=== PATIENT | male | born 1955 | race Caucasian/White ===

== ENCOUNTER 2018-04-28 18:16 | Emergency (ER) | payer OTHER, SELFPAY ==
[2018-04-28 18:17] VITALS: BP 149/83; BP 149/93; PULSE 66; PULSE 67; RESP 17; RESP 18; TEMP 36.5; O2SAT 98; O2SAT 99; BMI 30.1
--- NOTE | 2018-04-28 20:41 | ED.DCSUM_ITS ---
- ER Visit Summary Date of Service: 04/28/18 Chief Complaint: Left calf swelling History of Present Illness: The patient is a [address] Mora. He reports he has swelling in his left ankle and calf that began yesterday. He denies any pain. He just reports that it feels tight. He denies any injury. No fall, MVA, or change in activity. No personal family history of DVT. No recent travel. No chest pain or shortness of breath. No paresthesias distally. Physical Examination: Vitals: Stable. Afebrile. General: Well-nourished and well-developed. Head: Normocephalic atraumatic. Neck: Supple, no lymphadenopathy. No JVD. Nontender. Cardiovascular: Regular rate and rhythm. No murmurs. Respiratory: No respiratory distress. Clear to auscultation bilaterally. Abdominal: Soft, nontender, nondistended, normal bowel sounds. No guarding, rebound, or peritoneal signs. Back: Nontender. Extremities: Nontender, 1+ edema of his left calf. There is no overlying erythema or warmth to suggest cellulitis. He has a 2+ dorsalis pedis pulse. No pain over the medial or lateral malleoli. No pain over the proximal fibular base the fifth metatarsal. He is neurovascular intact distally. Skin: Normal color, no rash. Neurologic: Alert and oriented ?3. Cranial nerves II through XII are intact. Normal strength and sensation. Psych: Normal affect. Test Results: Left lower extremity Doppler was negative. Emergency Department Course and Treatment: Patient refused pain medications and is resting comfortably. Treatment Plan: Patient will be discharged instructions to have symptomatic care. Elevate his leg. Follow-up his primary care physician 1 week if not improving. Return to the emergency department for any worsening symptoms. Disposition: To home in improved and stable condition. Impression: 1. Left calf swelling, uncertain cause. This note was generated with [employer] dictation software. It may contain incorrect words, spelling, and punctuation that were not noted in review of the chart prior to signing ED Disposition - Plan for ED Patient: Disposition: Home or Assisted Living Chief Complaint: Lower Extremity Injury Instructions: ED Leg Swelling Unilateral Referrals: David Mora MD [Primary Care Provider] - 1 Week if not improving
[2018-04-28 20:47] VITALS: BP 137/81; PULSE 83; RESP 20; O2SAT 98
--- NOTE | 2018-04-28 20:48 | ED.RN ---
THIS NURSE REVIEWED D/C INSTRUCTIONS WITH PT. PT VERBALIZED UNDERSTANDING OF INSTRUCTIONS. PT DENIES FURTHER NEEDS OR QUESTIONS AT THIS TIME. PT AMBULATES FROM ROOM ON OWN WITHOUT ASSISTANCE FROM STAFF
== END 2018-04-28 20:48 | disposition home or self-care (01) ==
LOC: ED 19:32
PROVIDERS: Emergency Provider Emergency Medicine; Family Provider Family Medicine; PCP Family Medicine
DX: M79.89 Other specified soft tissue disorders (principal); I10 Essential (primary) hypertension; E78.00 Pure hypercholesterolemia, unspecified; E03.9 Hypothyroidism, unspecified; Z79.899 Other long term (current) drug therapy
CPT/HCPCS: 93971; 99282

== ENCOUNTER → 2025-06-20 | Outpatient (CLI) | payer OTHER, SELFPAY ==
--- NOTE | 2025-06-20 12:30 | MRI_ITS ---
EXAM: PELVIS W/WO CONTRAST 06/20/2025 CLINICAL HISTORY: PROSTATE CANCER SUSPECTED. TECHNIQUE: Procedure Code: [id number] Modality: MR Procedure: PELVIS W/WO CONTRAST Multiplanar and multisequence images were obtained intravenous gadolinium contrast. CONTRAST: Clariscan VOLUME: 20 mL COMPARISON: None available FINDINGS: Image quality:Diagnostic PSA:None available Prostate size: 3.2 x 4 x 3.2cms Prostate volume: 21.45mL Prostate Peripheral zone: 9 mm lesion of restricted diffusion in the mid left posterolateral peripheral zone with positive enhancement. PI-RADS: PI-RADS 4: high (clinically significant cancer is likely to be present) Transitional zone: Benign prostatic hyperplasia. No suspicious nodule. T2 weighted imaging score:Encapsulated nodules consistent with benign prostatic hyperplasia. PI-RADS: PI-RADS 2: low (clinically significant cancer is unlikely to be present) Extra prostatic extension: Capsule is intact. Seminal vesicles: Normal. Neurovascular involvement: None. Lymphadenopathy: No lymphadenopathy. Bladder: Normal. Osseous structures: Normal. Gastrointestinal: Normal. Soft tissues: Normal MRI/Pelvis W/WO Contrast IMPRESSION: Subtle 9 mm density in the mid left posterior lateral peripheral zone. PI-RADS: PI-RADS 4: high (clinically significant cancer is likely to be present ) Reading Location: [id number]
== END | disposition home or self-care (01) ==
LOC: OPMRI 12:25
PROVIDERS: PCP Family Medicine; Referring Provider Physician Assistant Medical; Visit Provider Physician Assistant Medical
DX: Z03.89 Encounter for observation for other suspected diseases and conditions ruled out (principal)
CPT/HCPCS: 72197; A9575; A4216

== ENCOUNTER → 2025-07-19 | Outpatient (CLI) | payer OTHER, SELFPAY ==
--- OUTSIDE RECORDS SUMMARY | 2025-07-19 07:22 | XMS RPT_ITS | CCD ---
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 Name Role Phone Abby LANIER, Arlen Ngo Primary Care Provider Arlen Floyd MD Primary Care Provider Juan SALEEM.KORY, Priya Unavailable ARLEN FLOYD Primary Care Unavailable JANET SAGE Attending Unavailable ARLEN FLOYD Primary Care Unavailable JANET SAGE Referring Unavailable FRANCHESCA ALLISON Attending Unavailable ARLEN FLOYD Referring Unavailable ARLEN FLOYD Primary Care Unavailable JANET SAGE Referring Unavailable ARLEN FLOYD Primary Care Unavailable JANET SAGE Referring Unavailable ARLEN FLOYD Primary Care Unavailable David Floyd Primary Care Unavailable Janet Sage Referring Unavailable Janet Sage Attending Unavailable Medications Current Medications Medication Drug Class(es) Dates Sig (Normalized) Sig (Original) amoxicillin 875 mg / clavulanate 125 mg oral tablet (1 source) Penicillin-class Antibacterial Start: 11-28-2023 End: 12-05-2023 take 1 tablet by mouth twice daily amoxicillin-clavula ene potassium (AUGMENTIN) 875-125 mg per tablet Take 1 tablet by mouth two times a day for 7 days. 14 tablet 0 11/28/2023 12/05/2023 Active Comment on above: Take 1 tablet by verna th two times a day for 7 days. aspirin 81 mg delayed release oral tablet (4 sources) Platelet Aggregation Inhibitor, Nonsteroidal Anti-inflammatory Drug take 1 tablet by mouth once daily aspirin, enteric coated (ASPIRIN, ENTERIC COATED) 81 mg EC tablet Take 81 mg by mouth once daily. Active levothyroxine sodium 0.112 mg oral tablet (20 sources) l-Thyroxine Start: 04-20-2023 End: 05-12-2024 take 1 tablet by mouth once daily for thyroid dysfunction levothyroxine (SYNTHROID) 112 mcg tablet Indications: Acquired hypothyroidism Take 1 tablet by mouth once daily. Take on empty stomach. For thyroid. 90 tablet 3 05/12/2024 Active Start: 12-18-2021 End: 03-25-2022 take 1 tablet by mouth once daily for thyroid dysfunction levothyroxine (SYNTHROID) 112 mcg tablet Indications: Acquired hypothyroidism Take 1 tablet by mouth once daily. Take on empty stomach. For thyroid. 90 tablet 3 03/25/2022 Active Comment on above: TAKE 1 TABLET BY VERNA TH ONCE DAILY. TAKE ON EMPTY STOMACH. FOR THYROID. lisinopril 5 mg oral tablet (20 sources) Angiotensin Converting Enzyme Inhibitor Start: take 1.5 tablets by mouth once daily lisinopril (ZESTRIL) 5 mg tablet Take 1.5 tablets by mouth once daily. 135 tablet 3 05/12/2024 Active Start: 04-18-2024 End: 05-12-2024 lisinopril (ZESTRIL) 5 mg ta blet take 1 and 1/2 tablets by mouth once daily 135 tablet 04/18/2024 05/12/2024 Discontinued Start: 04-20-2023 End: 04-18-2024 take 1.5 tablets by mouth once daily lisinopril (ZESTRIL) 5 mg tablet Take 1.5 tablets by mouth once daily. 135 tablet 3 04/20/2023 04/18/2024 Discontinued Start: 03-19-2023 lisinopril (ZE STRIL) 5 mg tablet TAKE 1 AND 1/2 TABLETS BY MOUTH ONCE DAILY 135 tablet 0 03/19/2023 Active Start: 03-25-2022 End: 03-25-2023 take 1.5 tablets by mouth once daily lisinopril (ZESTRIL, PRINIVIL) 5 mg tablet Take 1.5 tablets by mouth once daily. 135 tablet 3 03/25/2022 03/19/2023 Discontinued Start: 12-17-2021 End: 03-25-2022 lisinopril (ZESTRIL, PRINIVI L) 5 mg tablet TAKE 1 AND 1/2 TABS EVERY DAY BY MOUTH 45 tablet 0 12/17/2021 03/25/2022 Discontinued Comment on above: TAKE 1 AND 1/2 TABS EVERY DAY BY MOUTH Take 1.5 tablets by mouth once daily. TAKE 1 AND 1/2 TABLE TS BY MOUTH ONCE DAILY magnesium sulfate 0.0277 meq/ml / potassium sulfate 0.0374 meq/ml / sodium sulfate 0.257 meq/ml oral solution (3 sources) Start: 025 sodium sulfate-potassium sulfate-magnesium sulfate (SUPREP BOWEL PREP KIT) 17.5-3.13-1.6 gram oral liquid Take 1 Bottle by mouth two times a day. 354 mL 09/21/2024 Active simvastatin 40 mg oral tablet (20 sources) HMG-CoA Reductase Inhibitor Start: 023 End: 024 take 1 tablet by mouth once daily at bedtime for hyperlipidemia simvastatin (ZOCOR) 40 mg tablet Indications: Mixed hyperlipidemia Take 1 tablet by mouth daily at bedtime. For cholesterol 90 tablet 3 05/12/2024 Active Start: 02-19-2023 take 1 tablet by verna th once daily at bedtime simvastatin (ZOCOR) 40 mg tablet Indications: Mixed hyperlipidemia TAKE 1 TABLET BY MOUTH DAILY AT BEDTIME. FOR CHOLESTEROLS. 90 tablet 0 02/19/2023 Active Start: 03-26-2021 End: 01-20-2022 take 1 tablet by mouth once daily at bedtime simvastatin (ZOCOR) 40 mg tablet Indications: Mixed hyperlipidemia Take 1 tablet by mouth daily at bedtime. For cholesterols. 90 tablet 3 01/20/2022 Active Comment on above: Take 1 tablet by verna th daily at bedtime. For cholesterols. Completed/Discontinued Medications Medication Drug Class(es) Dates Sig (Normalized) Sig (Original) calcium chloride 0.0014 meq/ml / potassium chloride 0.004 meq/ml / sodium chloride 0.103 meq/ml / sodium lactate 0.028 meq/ml injectable solution (1 source) Start: 10-11-2024 End: 10-11-2024 take 30 mL intravenously every hour 30 mL/hr, INTRAVENOUS, CONTINUOUS, Starting on Thu10/11/24 at 0930, Until Thu10/11/24 at 1020, Preprocedure diphenhydrAMINE (1 source) Histamine-1 Receptor Antagonist Start: 10-11-2024 End: 01-28-2025 12.5-50 mg, INTRAVENOUS, DIRECTED, Starting on Thu10/11/24 at 1000, Until Thu10/11/24 at 1359, DOSING DIRECTED BY PHYSICIAN FOR PROCEDURAL SEDATION ONLY, Intraprocedure 1 ml fentaNYL 0.05 mg/ml injection (1 source) Opioid Agonist Start: 10-11-2024 End: 10-11-2024 25-100 mcg, INTRAVENOUS, DIRECTED, Starting on Thu10/11/24 at 1000, Until Thu10/11/24 at 1359, DOSING DIRECTED BY PHYSICIAN FOR PROCEDURAL SEDATION ONLY, Intraprocedure 5 ml midazolam 1 mg/ml injection (1 source) Benzodiazepine Start: 10-11-2024 End: 10-11-2024 1-5 mg, INTRAVENOUS, DIRECTED, Starting on Thu10/11/24 at 1000, Until Thu10/11/24 at 1359, DOSING DIRECTED BY PHYSICIAN FOR PROCEDURAL SEDATION ONLY, Intraprocedure Problems Active Problems Problem Classification Problem Date Documented Da te Episodic/Chronic Disorders of lipid metabolism (20 sources) Mixed hyperlipidemia; Translations: [Mixed hyperlipidemia] Onset: 03-12-2009 Chronic Essential hypertension (20 sources) Essential hypertension; Translations: [Essential (primary) hypertension] Onset: 03-23-2009 Chronic Hyperplasia of prostate (20 sources) Benign prostatic hyperplasia; Translations: [Benign prostatic hyperplasia without lower urinary tract symptoms] Onset: 08-31-2009 08-31-2009 Chronic Immunizations and screening for infectious disease (10 sources) Patient encounter status; Translations: [Encounter for immunization] Episodic Lymphadenitis (1 source) Cervical lymphadenopathy; Translations: [Localized enlarged lymph nodes] 11-28-2023 Episodic Other and unspecified benign neoplasm (2 sources) Benign neoplasm of colon; Translations: [Benign neoplasm of colon, unspecified] 05-12-2024 Episodic Other screening for suspected conditions (not mental disorders or infectious disease) (8 sources) Raised prostate specific antigen; Translations: [Elevated prostate specific antigen [PSA]] Onset: 10-11-2024 05-19-2023 Episodic Other upper respiratory infections (2 sources) Acute pansinusitis; Translations: [Acute pansinusitis, unspecified] 11-28-2023 Episodic Residual codes; unclassified (19 sources) Family history of prostate cancer; Translations: [Family history of malignant neoplasm of prostate] Onset: 11-30-2012 11-30-2012 Episodic Residual codes; unclassified (1 source) Family history of malignant neoplasm of prostate; Translations: [Family history of malignant neoplasm of prostate] Onset: 05-30-2025 Episodic Thyroid disorders (20 sources) Acquired hypothyroidism; Translations: [Hypothyroidism, unspecified] Onset: 04-03-2011 09-04-2017 Chronic Past or Other Problems Problem Classification Problem Date Documented Da te Episodic/Chronic Other and unspecified benign neoplasm (1 source) Benign neoplasm of colon, unspecified; Translations: [Benign neoplasm of colon, unspecified part of colon] Onset: 10-11-2024 Episodic Results Test Name Value Interpretation Reference Range Facility [facility] 06-29-2025 KORYN Telephone (FPWADS) ILDA LARSEN ([id number]) 1955 M Date Time Provider Department 06/29/25 ARLEN FLOYD During your visit today, we recorded the following information about you: Jai Hurtado LPN 06/29/2025 11:51 AM Signed Received visit summary from [facility]. Placed in provider's inbox for review. Route to MA scanning Allergies As of Date: 06/29/2025 (No Known Allergies) Date Reviewed: 05/30/2025 Reviewed by: Uma Black LPN - Fully Assessed Reason for Visit: Received Outside Medical Records [[id number]] Cmt: [facility] Prescriptions as of 06/29/2025 - lisinopril (ZESTRIL) 5 mg tablet TAKE 1 AND 1/2 TABLETS BY MOUTH ONCE DAILY - levothyroxine (SYNTHROID) 112 mcg tablet TAKE 1 TABLET BY MOUTH ONCE DAILY. TAKE ON EMPTY STOMACH. FOR THYROID. - iv contrast (will be provided with radiology test) MRI Prostate Inject, intravenously, once for 1 dose. No IV access, insert saline lock prior to the beginning of sedation, infusion, injection of imaging exam. Discontinue saline lock post exam. If Pt. has a central line or IVAD, may access for administration according to line specific nursing protocol. Once exam is complete flush line and de-access according to line specific nursing protocol in the MR contrast administration guidelines link. - iv contrast (will be provided with radiology test) MRI Prostate Inject, intravenously, once for 1 dose. No IV access, insert saline lock prior to the beginning of sedation, infusion, injection of imaging exam. Discontinue saline lock post exam. If Pt. has a central line or IVAD, may access for administration according to line specific nursing protocol. Once exam is complete flush line and de-access according to line specific nursing protocol in the MR contrast administration guidelines link. - sodium sulfate-potassium sulfate-magnesium sulfate (SUPREP BOWEL PREP KIT) 17.5-3.13-1.6 gram oral liquid Take 1 Bottle by mouth two times a day. - aspirin, enteric coated (ASPIRIN, ENTERIC COATED) 81 mg EC tablet Take 81 mg by mouth once daily. - simvastatin (ZOCOR) 40 mg tablet Take 1 tablet by mouth daily at bedtime. For cholesterol Problem List As Of Date 06/29/2025 Noted Resolved Mixed Hyperlipidemia [E78.2] 03/12/2009 Essential hypertension [I10] 03/23/2009 BPH (Benign Prostatic Hyperplasia) [N40.0] 08/31/2009 Acquired hypothyroidism [E03.9] 04/03/2011 Family history of prostate cancer [Z80.42] 11/30/2012 Encounter Status:Closed by JAI HURTADO on 06/29/25 Normal [facility] Pelvis W/WO Contraston 06-20 Pelvis W/WO Contrast [facility] Imaging Services [address] [place] [id number] Pelvis W/WO Contrast MR#: [id number] Acct: [id number] Name: ILDA LARSEN Rep #: [id number] : 1955 M 69 From: Kulwant scott MD PCP: Dr. David Floyd MD Status: REG CLI Study: Pelvis W/WO Contrast Date of Exam: 06/20/25 Exam# [id number] Ordering Dr: Janet Sage PA EXAM: PELVIS W/WO CONTRAST 06/20/2025 CLINICAL HISTORY: PROSTATE CANCER SUSPECTED. TECHNIQUE: Procedure Code: [id number] Modality: MR Procedure: PELVIS W/WO CONTRAST Multiplanar and multisequence images were obtained intravenous gadolinium contrast. CONTRAST: Clariscan VOLUME: 20 mL COMPARISON: None available FINDINGS: Image quality:Diagnostic PSA:None available Prostate size: 3.2 x 4 x 3.2cms Prostate volume: 21.45mL Prostate Peripheral zone: 9 mm lesion of restricted diffusion in the mid left posterolateral peripheral zone with positive enhancement. PI-RADS: PI-RADS 4: high (clinically significant cancer is likely to be present) Transitional zone: Benign prostatic hyperplasia. No suspicious nodule. T2 weighted imaging score:Encapsulated nodules consistent with benign prostatic hyperplasia. PI-RADS: PI-RADS 2: low (clinically significant cancer is unlikely to be present) Extra prostatic extension: Capsule is intact. Seminal vesicles: Normal. Neurovascular involvement: None. Lymphadenopathy: No lymphadenopathy. Bladder: Normal. Osseous structures: Normal. Gastrointestinal: Normal. Soft tissues: Normal MRI/Pelvis W/WO Contrast IMPRESSION: Subtle 9 mm density in the mid left posterior lateral peripheral zone. PI-RADS: PI-RADS 4: high (clinically significant cancer is likely to be present) Reading Location: [id number] CC: JANET SAGE; Dr. David Floyd MD Senior Automation Engineer: Signed Normal [facility] 06-16-2025 [facility] Telephone (UROLWS) ILDA LARSEN ([id number]) 1955 M Date Time Provider Department 06/16/25 JANET SAGE During your visit today, we recorded the following information about you: Francy Montalvo LPN 06/16/2025 3:08 PM Signed Patient calling in requesting records to be faxed to [facility] (Dr. Aparicio) office. Faxed last office visit to [phone]. Francy Montalvo LPN Allergies As of Date: 06/16/2025 (No Known Allergies) Date Reviewed: 05/30/2025 Reviewed by: Uma Black LPN - Fully Assessed Reason for Visit: Patient Question [[id number]] Prescriptions as of 06/16/2025 - iv contrast (will be provided with radiology test) MRI Prostate Inject, intravenously, once for 1 dose. No IV access, insert saline lock prior to the beginning of sedation, infusion, injection of imaging exam. Discontinue saline lock post exam. If Pt. has a central line or IVAD, may access for administration according to line specific nursing protocol. Once exam is complete flush line and de-access according to line specific nursing protocol in the MR contrast administration guidelines link. - iv contrast (will be provided with radiology test) MRI Prostate Inject, intravenously, once for 1 dose. No IV access, insert saline lock prior to the beginning of sedation, infusion, injection of imaging exam. Discontinue saline lock post exam. If Pt. has a central line or IVAD, may access for administration according to line specific nursing protocol. Once exam is complete flush line and de-access according to line specific nursing protocol in the MR contrast administration guidelines link. - sodium sulfate-potassium sulfate-magnesium sulfate (SUPREP BOWEL PREP KIT) 17.5-3.13-1.6 gram oral liquid Take 1 Bottle by mouth two times a day. - aspirin, enteric coated (ASPIRIN, ENTERIC COATED) 81 mg EC tablet Take 81 mg by mouth once daily. - levothyroxine (SYNTHROID) 112 mcg tablet Take 1 tablet by mouth once daily. Take on empty stomach. For thyroid. - lisinopril (ZESTRIL) 5 mg tablet Take 1.5 tablets by mouth once daily. - simvastatin (ZOCOR) 40 mg tablet Take 1 tablet by mouth daily at bedtime. For cholesterol Problem List As Of Date 06/16/2025 Noted Resolved Mixed Hyperlipidemia [E78.2] 03/12/2009 Essential hypertension [I10] 03/23/2009 BPH (Benign Prostatic Hyperplasia) [N40.0] 08/31/2009 Acquired hypothyroidism [E03.9] 04/03/2011 Family history of prostate cancer [Z80.42] 11/30/2012 Encounter Status:Closed by FRANCY MONTALVO on 06/16/25 [facility] Jose 06-05-2025 [facility] Telephone (UROLWS) ILDA LARSEN ([id number]) 1955 M Date Time Provider Department 06/05/25 JANET SAGE During your visit today, we recorded the following information about you: Uma Black LPN 06/05/2025 9:07 AM Signed Orders faxed to [facility]. ROSE Pineda Jennifer, MA 06/14/2025 1:39 PM Signed Patient phones to report [facility] has cancelled his MRI for 06/14/2025 stating they need information from urology office. Patient reports calling his insurance and being told he does not require a prior auth and that [facility] is in network. Patient rescheduled MRI for 06/26/25 and is asking for the office to speak with [facility] to resolve issue. KATHYA Syed Kimberly, LPN 06/14/2025 3:28 PM Signed Called patient. Verified name and date of . Patient states he talked to a woman at [facility] and was told they needed to talk with urology office which they have not called here and he has no idea who the person was as he called main scheduling office and was transferred and his insurance company confirmed he did not need any sort of prior authorization. General appointment number for [facility] that patient called is . ROSE Pineda Kimberly, LPN 06/14/2025 3:52 PM Signed Called registration/scheduling at [facility] and spoke with Savana. Per Savana they have that patient requested appointment to be cancelled and rescheduled. Their pre certification department actually pushed out the appointment stating she believes that [facility] was to do the prior authorization but informed that [facility] would do it since they are the ones getting paid and that patients insurance does not require prior authorization. Savana is uncertain and needs to speak to their pre certification department. Placed on lengthy hold. Call transferred to Celine in pre certification with [facility]. Celine states that they do not do the prior authorizations due to not having EPIC system and she sent information to Elle to [facility] physicians that go to their facility. Celine reports it is not uncommon that insurances will tell patients that no prior authorization is needed but they submit and get notice one is needed. Number for Elle that Celine has is . ROSE Pineda Kimberly, LPN 06/15/2025 10:58 AM Addendum Erick Morales Elle You3 hours ago (7:09 AM) ROBBIE The number listed for me in the previous note is incorrect- my direct line is [phone]. A referral for [facility] needs entered in [employer], and then I can work the authorization. Referral placed. Uma Black LPN Allergies As of Date: 06/05/2025 (No Known Allergies) Date Reviewed: 05/30/2025 Reviewed by: Uma Black LPN - Fully Assessed Reason for Visit: Orders [[id number]] Cmt: MRI Prescriptions as of 06/15/2025 - iv contrast (will be provided with radiology test) MRI Prostate Inject, intravenously, once for 1 dose. No IV access, insert saline lock prior to the beginning of sedation, infusion, injection of imaging exam. Discontinue saline lock post exam. If Pt. has a central line or IVAD, may access for administration according to line specific nursing protocol. Once exam is complete flush line and de-access according to line specific nursing protocol in the MR contrast administration guidelines link. - iv contrast (will be provided with radiology test) MRI Prostate Inject, intravenously, once for 1 dose. No IV access, insert saline lock prior to the beginning of sedation, infusion, injection of imaging exam. Discontinue saline lock post exam. If Pt. has a central line or IVAD, may access for administration according to line specific nursing protocol. Once exam is complete flush line and de-access according to line specific nursing protocol in the MR contrast administration guidelines link. - sodium sulfate-potassium sulfate-magnesium sulfate (SUPREP BOWEL PREP KIT) 17.5-3.13-1.6 gram oral liquid Take 1 Bottle by mouth two times a day. - aspirin, enteric coated (ASPIRIN, ENTERIC COATED) 81 mg EC tablet Take 81 mg by mouth once daily. - levothyroxine (SYNTHROID) 112 mcg tablet Take 1 tablet by mouth once daily. Take on empty stomach. For thyroid. - lisinopril (ZESTRIL) 5 mg tablet Take 1.5 tablets by mouth once daily. - simvastatin (ZOCOR) 40 mg tablet Take 1 tablet by mouth daily at bedtime. For cholesterol Problem List As Of Date 06/05/2025 Noted Resolved Mixed Hyperlipidemia [E78.2] 03/12/2009 Essential hypertension [I10] 03/23/2009 BPH (Benign Prostatic Hyperplasia) [N40.0] 08/31/2009 Acquired hypothyroidism [E03.9] 04/03/2011 Family history of prostate cancer [Z80.42] 11/30/2012 Encounter Status:Closed by UMA BLACK on 06/05/25 [facility] Yana 05-30-2025 CNOV Office Visit (UROLWS ) ILDA LARSEN ([id number]) 1955 M Date Time Provider Department 05/30/25 2:30 PM JANET SAGE During your visit today, we recorded the following information about you: Uma Black LPN 05/30/2025 4:17 PM Signed Verified name and date of . CC Post Void Residual HPI: Ilda Larsen is a 69 year old male. The patient is here now for an appointment with Janet Sage, LARRY, [place], PA-COV. Procedure: Explained procedure to patient and verbalizes understanding. Performed a PVR. Patient urinated and instructed to empty bladder as much as possible just prior to having PVR done using bladder ultrasound scanner. Results of scan: 0 mL The patient tolerated the procedure well. Plan: Appointment with Janet. Janet Sage PA-C 05/30/2025 4:17 PM Signed [facility] EST PATIENT CLINIC NOTE (M) Some elements copied from his previous note, which have been updated where appropriate, and all reflect current medical decision making from date of this visit. Note was generated by [employer] and edited as appropriate SERVICE DATE: May 30, 2025 NAME: Ilda Larsen GENDER: male CHIEF COMPLAINT: The patient is a 69-year-old male, presenting for evaluation of rising prostate-specific antigen levels and isoform PSA blood testing. HISTORY OF PRESENT ILLNESS: The patient is a 69-year-old male, presenting for evaluation of rising prostate-specific antigen levels and isoform PSA blood testing. Elevated PSA Levels: - Gradual increase in PSA levels over the years, with a more significant rise noted in the past 6 months. - No urinary symptoms reported. - No history of prostate biopsy. - Family history of prostate cancer; brother underwent radical prostatectomy 14 years ago. - No current medications. > We discussed the common causes of urinary frequency and urgency, and restricting water intake In hopes to mitigate the need to urinate, we discussed how this behavior more often worsen the problem not improving it, > We discussed increasing daily water intake to 64-84 oz 7a -7p and try to reduce bladder irritants, caffeine, alcohol and acid foods and drink. > Bladder irritants handout available to patient. LABS: PSA (ng/mL) Date Value 05/24/2025 6.47 11/22/2024 5.95 04/19/2024 4.63 PSA Screening (ng/mL) Date Value 03/21/2020 2.46 02/10/2018 1.63 11/20/2016 1.49 Creatinine Date Value Ref Range Status 04/19/2024 1.05 0.73 - 1.22 mg/dL Final 03/31/2023 0.95 0.73 - 1.22 mg/dL Final 12/31/2021 1.03 0.73 - 1.22 mg/dL Final No results found for: TESTOST No results found for: "HCT" PSA (ng/mL) Date Value 05/24/2025 6.47 11/22/2024 5.95 04/19/2024 4.63 PSA Screening (ng/mL) Date Value 03/21/2020 2.46 02/10/2018 1.63 11/20/2016 1.49 MEDICATIONS: aspirin, enteric coated (ASPIRIN, ENTERIC COATED) 81 mg EC tablet Take 81 mg by mouth once daily. levothyroxine (SYNTHROID) 112 mcg tablet Take 1 tablet by mouth once daily. Take on empty stomach. For thyroid. lisinopril (ZESTRIL) 5 mg tablet Take 1.5 tablets by mouth once daily. simvastatin (ZOCOR) 40 mg tablet Take 1 tablet by mouth daily at bedtime. For cholesterol sodium sulfate-potassium sulfate-magnesium sulfate (SUPREP BOWEL PREP KIT) 17.5-3.13-1.6 gram oral liquid Take 1 Bottle by mouth two times a day. PAST MEDICAL HISTORY: PAST MEDICAL HISTORY Diagnosis Date Acquired hypothyroidism Benign neoplasm of colon BPH (benign prostatic hyperplasia) Coronary artery disease Deltoid bursitis Elevated prostate specific antigen (PSA) Essential hypertension HTN (hypertension) Hypercholesteremia Hypothyroidism 2011 Mixed hyperlipidemia Shingles Painful REVIEW OF SYSTEMS: Genitourinary: (-) urinary symptoms PHYSICAL EXAMINATION: General: Well-appearing, alert AND oriented, no acute distress Skin: Normal HEENT: Pupils equal, round. Oral cavity, oropharynx clear Neck: Supple, no mass Breast: Deferred Respiratory: Clear to auscultation, bilaterally Cardiovascular: Regular rate and rhythm, no murmurs, rubs, or gallops Abdomen: Soft, non-tender, non-distended, no masses palpable, no hepatosplenomegaly, normal bowel sounds Genitourinary: Deferred MSK: Back is non-tender Extremities: No clubbing, cyanosis, or edema PROBLEM LIST REVIEW: Yes LABS: Results for orders placed or performed in visit on 05/30/25 UA DIP, URINE (POC) Result Value Ref Range GLUCOSE UA (POCT) Negative Negative mg/dL BILIRUBIN UA (POCT) Negative Negative KETONE UA (POCT) Negative Negative mg/dL SPECIFIC GRAVITY UA (POCT) 1.020 1.005 - 1.030 HEMOGLOBIN/BLOOD UA (POCT) Trace-intact (A) Negative PH UA (POCT) 5.5 4.5 - 8.0 PROTEIN UA (POCT) Negative Negative mg/dL UROBILINOGEN UA (P (more content not included)... Normal [facility] ISOPSA ASSAY FOR UROLOGY USE ONLYon 05-30-2025 INTERPRETATION View results in Scan maureen Documents link when available. Normal [facility] Comment on above: Order Comment: Speci men Type: BLOOD SPECIMEN Ordering Facility: [facility] Address: [address] [place] [address] Performed By: #### I SOPSA #### [facility] CLIA [id number] [place] [id number] ISOPSA INDEX 21.2 Normal [facility] Comment on above: Order Comment: Speci men Type: BLOOD SPECIMEN Ordering Facility: [facility] Address: [address] [place] [address] Performed By: #### I SOPSA #### [facility] CLIA [id number] [place] [id number] TPSA RESULTS 7.7 Normal [facility] Comment on above: Order Comment: Speci men Type: BLOOD SPECIMEN Ordering Facility: [facility] Address: [address] [place] [address] Performed By: #### I SOPSA #### [facility] CLIA [id number] [id number] [place] [id number] UA DIP, URINE (POC)on 2024 BILIRUBIN UA (POCT) Negative Negative [facility] CLARITY UA (POCT) [facility] ([facility]) Yellow [facility] GLUCOSE UA (POCT) Negative Negative mg/dL [facility] Hemoglobin Ql (U) Trace-intact Abnormal Negative [facility] Interpretation and review of laboratory results Abnormal [facility] KETONE UA (POCT) Negative Negative mg/dL [facility] LEUKOCYTES UA (POCT) Negative Negative [facility] NITRITE UA (POCT) Negative Negative [facility] PH UA (POCT) 5.5 4.5 - 8.0 [facility] Protein Ql (U) Negative Negative mg/dL [facility] SPECIFIC GRAVITY UA (POCT) 1.020 1.005 - 1.030 [facility] UROBILINOGEN UA (POCT) 1.0 Normal E.U./dL [facility] Location:[facility], [address] [facility], [place], [place], [id number] [place] [address] POINT OF CARE [facility] PSA SerPl-mCncon 05-24-2025 Prostate specific Ag [Mass/Vol] 6.47 ng/mL High <2.60 [facility] Comment on above: Order Comment: Speci men Type: BLOOD SPECIMEN Ordering Facility: [facility] Address: [address] [place] [address] Result Comment: Tota l PSA test methodology used is the Electrochemiluminescence Immunoassay by [employer]. Total PSA values by differing methodologies cannot be interchanged. For an individual patient, the significance of a PSA level should be interpreted in a broad clinical context, including age, race, family history, digital rectal exam, prostate size, results of prior testing (prostate biopsy, free PSA, PCA3), and use of 5-alpha reductase inhibitors. Considering the high incidence of asymptomatic cancer in the general population that may not pose an ultimate risk to a patient, the decision to recommend urological evaluation or prostate biopsy should be individualized after consideration of all these factors. REFERENCE: Astrid Goldberg M.D., M.P.H., Leon Gutierrez M.D., Ph.D., Richard Tate M.D., Uma Argueta, M.P.H., Juanis Falk, Sc.D. Effect of Verification Bias on Screening for Prostate Cancer by Measurement of Prostatic Specific Antigen. N Engl J Med 2003,349:335-42. Performed By: #### 2 857-1 #### [facility] CLIA [id number] [address] [place] [address] [place] PSA SerPl-mCncon 11-22-2024 Prostate specific Ag [Mass/Vol] 5.95 ng/mL High <2.60 [facility] Comment on above: Order Comment: Speci men Type: BLOOD SPECIMEN Ordering Facility: [facility] Address: [address] [place] [id number] Result Comment: Tota l PSA test methodology used is the Electrochemiluminescence Immunoassay by [employer]. Total PSA values by differing methodologies cannot be interchanged. For an individual patient, the significance of a PSA level should be interpreted in a broad clinical context, including age, race, family history, digital rectal exam, prostate size, results of prior testing (prostate biopsy, free PSA, PCA3), and use of 5-alpha reductase inhibitors. Considering the high incidence of asymptomatic cancer in the general population that may not pose an ultimate risk to a patient, the decision to recommend urological evaluation or prostate biopsy should be individualized after consideration of all these factors. REFERENCE: Astrid Goldberg M.D., M.P.H., Leon Gutierrez M.D., Ph.D., Richard Tate M.D., Uma Argueta, M.P.H., Juanis Falk ScDillon. Effect of Verification Bias on Screening for Prostate Cancer by Measurement of Prostatic Specific Antigen. N Engl J Med 2003,349:335-42. Performed By: #### 2 857-1 #### [facility] CLIA [id number] [address] [place] [address] [place] [id number] 10-11-2024 [id number] HNO ID: [id number] Author: WANDA LAINEZ RN Service: ? Author Type: Registered Nurse Type: [id number] Filed: 10/11/2024 10:22 Note Text: The patient received a copy of Colonoscopy discharge instructions that contain information for how to contact the physician who performed the procedure and when to seek medical care. Normal [facility] Colonoscopyon 10-11-2024 Colonoscopy [facility] Gastrointestinal Endoscopy Patient Name: Ilda Larsen Procedure Date: 10/11/2024 9:39 AM Date of : 1955 Admit Type: Outpatient Age: 69 Gender: Male Note Status: Finalized Procedure: Colonoscopy - screening high risk Indications: High risk colon cancer surveillance: Personal history of adenomatous colonic polyps Providers: Franchesca Allison MD Patient Profile: Refer to note in patient chart for documentation of history and physical. Last Colonoscopy: 2019. Referring Physician: Arlen Floyd MD (Referring MD) Medicines: Midazolam 7 mg IV, Fentanyl 100 micrograms IV, Diphenhydramine 50 mg IV Complications: No immediate complications. Requesting Provider: Procedure: Pre-Anesthesia Assessment: - Prior to the procedure, a History and Physical was performed, and patient medications and allergies were reviewed. The patient is competent. The risks and benefits of the procedure and the sedation options and risks were discussed with the patient. All questions were answered and informed consent was obtained. Patient identification and proposed procedure were verified by the physician in the pre-procedure area. Mental Status Examination: alert and oriented. Airway Examination: normal oropharyngeal airway and neck mobility. Respiratory Examination: clear to auscultation. CV Examination: normal. Prophylactic Antibiotics: The patient does not require prophylactic antibiotics. Prior Anticoagulants: The patient has taken no anticoagulant or antiplatelet agents. ASA Grade Assessment: II - A patient with mild systemic disease. After reviewing the risks and benefits, the patient was deemed in satisfactory condition to undergo the procedure. The anesthesia plan was to use moderate sedation / analgesia (conscious sedation). Immediately prior to administration of medications, the patient was re-assessed for adequacy to receive sedatives. The heart rate, respiratory rate, oxygen saturations, blood pressure, adequacy of pulmonary ventilation, and response to care were monitored throughout the procedure. The physical status of the patient was re-assessed after the procedure. After I obtained informed consent, the scope was passed under direct vision. Throughout the procedure, the patient's blood pressure, pulse, and oxygen saturations were monitored continuously. The Colonoscope was introduced through the anus and advanced to the cecum, identified by the appendiceal orifice, ileocecal valve and palpation. The colonoscopy was performed without difficulty. The patient tolerated the procedure well. The quality of the bowel preparation was adequate to identify polyps greater than 5 mm in size. The appendiceal orifice and the rectum were photographed. Moderate Sedation: The administration of moderate sedation was initiated at 09:47. Moderate (conscious) sedation was personally administered by the endoscopist. The following parameters were monitored: oxygen saturation, heart rate, blood pressure, respiratory rate, EKG, adequacy of pulmonary ventilation, and response to care. Total physician intraservice time was 24 minutes. Findings: The perianal and digital rectal examinations were normal. Non-bleeding internal hemorrhoids were found. A few small-mouthed diverticula were found in the sigmoid colon. Impression: - Non-bleeding internal hemorrhoids. - No specimens collected. Recommendation: - Repeat colonoscopy in 5 years for surveillance for history of colon polyps. - Return to primary care physician PRN. - Patient has a contact number available for emergencies. The signs and symptoms of potential delayed complications were discussed with the patient. Return to normal activities tomorrow. Written discharge instructions were provided to the patient. - Continue present medications. - Resume previous diet. Procedure Code(s): --- Professional --- 05782, Colonoscopy, flexible; diagnostic, including collection of specimen(s) by brushing or washing, when performed (separate procedure) 12031, 59, Moderate sedation services provided by the same physician or other qualified health residential child care counselor performing the diagnostic or therapeutic service that the sedation supports, requiring the presence of an independent trained observer to assist in the monitoring of the patient's level of consciousness and physiological status; initial 15 minutes of intraservice time, patient age 5 years or older [address], Moderate sedation; each additional 15 minutes intraservice time Diagnosis Code(s): --- Professional --- K64.8, Other hemorrhoids Z86.0101, Personal history of adenomatous and serrated colon polyps Z12.11, Encounter for screening for malignant neoplasm of colon CPT copyright 2020 [employer]. All rights reserved. The codes documented in this report are preliminary and upon confectionery drops machine operator review m (more content not included)... Normal [facility] Colonoscopy Study observatio non 10-11-2024 [facility] Gastrointestinal Endoscopy Patient Name: Ilda Larsen Procedure Date: 10/11/2024 9:39 AM Date of : 1955 Admit Type: Outpatient Age: 69 Gender: Male Note Status: Finalized Procedure: Colonoscopy - screening high risk Indications: High risk colon cancer surveillance: Personal history of adenomatous colonic polyps Providers: Franchesca Allison MD Patient Profile: Refer to note in patient chart for documentation of history and physical. Last Colonoscopy: 2019. Referring Physician: Arlen Floyd MD (Referring MD) Medicines: Midazolam 7 mg IV, Fentanyl 100 micrograms IV, Diphenhydramine 50 mg IV Complications: No immediate complications. Requesting Provider: Procedure: Pre-Anesthesia Assessment: - Prior to the procedure, a History and Physical was performed, and patient medications and allergies were reviewed. The patient is competent. The risks and benefits of the procedure and the sedation options and risks were discussed with the patient. All questions were answered and informed consent was obtained. Patient identification and proposed procedure were verified by the physician in the pre-procedure area. Mental Status Examination: alert and oriented. Airway Examination: normal oropharyngeal airway and neck mobility. Respiratory Examination: clear to auscultation. CV Examination: normal. Prophylactic Antibiotics: The patient does not require prophylactic antibiotics. Prior Anticoagulants: The patient has taken no anticoagulant or antiplatelet agents. ASA Grade Assessment: II - A patient with mild systemic disease. After reviewing the risks and benefits, the patient was deemed in satisfactory condition to undergo the procedure. The anesthesia plan was to use moderate sedation / analgesia (conscious sedation). Immediately prior to administration of medications, the patient was re-assessed for adequacy to receive sedatives. The heart rate, respiratory rate, oxygen saturations, blood pressure, adequacy of pulmonary ventilation, and response to care were monitored throughout the procedure. The physical status of the patient was re-assessed after the procedure. After I obtained informed consent, the scope was passed under direct vision. Throughout the procedure, the patient's blood pressure, pulse, and oxygen saturations were monitored continuously. The Colonoscope was introduced through the anus and advanced to the cecum, identified by the appendiceal orifice, ileocecal valve and palpation. The colonoscopy was performed without difficulty. The patient tolerated the procedure well. The quality of the bowel preparation was adequate to identify polyps greater than 5 mm in size. The appendiceal orifice and the rectum were photographed. Moderate Sedation: The administration of moderate sedation was initiated at 09:47. Moderate (conscious) sedation was personally administered by the endoscopist. The following parameters were monitored: oxygen saturation, heart rate, blood pressure, respiratory rate, EKG, adequacy of pulmonary ventilation, and response to care. Total physician intraservice time was 24 minutes. Findings: The perianal and digital rectal examinations were normal. Non-bleeding internal hemorrhoids were found. A few small-mouthed diverticula were found in the sigmoid colon. Impression: - Non-bleeding internal hemorrhoids. - No specimens collected. Recommendation: - Repeat colonoscopy in 5 years for surveillance for history of colon polyps. - Return to primary care physician PRN. - Patient has a contact number available for emergencies. The signs and symptoms of potential delayed complicatio (more content not included)... PROVATION [facility] Radiology Study observation (narrative) [facility] HISTORY PHYSICALon HISTORY PHYSICAL HNO ID: [id number] Author: FRANCHESCA ALLISON MD Service: General Surgery Author Type: Physician Type: H&P Filed: 10/11/2024 09:38 Note Text: HISTORY AND PHYSICAL Ilda Larsen 1955 REFERRING PHYSICIAN: Arlen Floyd MD CHIEF COMPLAINT: No chief complaint on file. HPI: The patient is a 69 year old male here for colonoscopy.for screening for colon cancer Last had colonoscopy 2019 findings of polyp PAST MEDICAL HISTORY Diagnosis Date Acquired hypothyroidism Benign neoplasm of colon BPH (benign prostatic hyperplasia) Coronary artery disease Deltoid bursitis Elevated prostate specific antigen (PSA) Essential hypertension HTN (hypertension) Hypercholesteremia Hypothyroidism 2010 Mixed hyperlipidemia Shingles Painful PAST SURGICAL HISTORY Procedure Laterality Date COLONOSCOPY FLX DX W/COLLJ SPEC WHEN PFRMD 1998 Colonoscopy COLONOSCOPY FLX DX W/COLLJ SPEC WHEN PFRMD 11/09/2019 Colonoscopy COLSC FLX W/RMVL OF TUMOR POLYP LESION SNARE TQ 04/23/10 SIGMOIDOSCOPY FLX DX W/COLLJ SPEC BR/WA IF PFRMD 07/23/2010 Sigmoidoscopy, flexible VASECTOMY UNI/BI SPX W/POSTOP SEMEN EXAMS Current Outpatient Medications Medication Sig sodium sulfate-potassium sulfate-magnesium sulfate (SUPREP BOWEL PREP KIT) 17.5-3.13-1.6 gram oral liquid Take 1 Bottle by mouth two times a day. aspirin, enteric coated (ASPIRIN, ENTERIC COATED) 81 mg EC tablet Take 81 mg by mouth once daily. levothyroxine (SYNTHROID) 112 mcg tablet Take 1 tablet by mouth once daily. Take on empty stomach. For thyroid. lisinopril (ZESTRIL) 5 mg tablet Take 1.5 tablets by mouth once daily. simvastatin (ZOCOR) 40 mg tablet Take 1 tablet by mouth daily at bedtime. For cholesterol No current facility-administered medications for this encounter. ALLERGIES: Patient has no known allergies. PERSONAL HISTORY: Social History Tobacco Use Smoking status: Never Smokeless tobacco: Never Vaping Use Vaping status: Never Used Substance Use Topics Alcohol use: Not Currently Drug use: Never FAMILY HISTORY Problem Relation Age of Onset Lipids Brother Prostate Cancer Brother REVIEW OF SYSTEMS: Denies chest pain Denies shortness of breath Physical examination: Vital signs in chart, reviewed and noted by me General - WD/WN in no apparent distress, alert and oriented Head - Normocephalic. EOM intact with sclera clear. Mouth with mucus membranes moist. Neck - supple with no jugular venous distention noted. Trachea is midline. Lungs - normal breath sounds, normal respiratory motion, no adventitial sounds noted. Heart - normal heart sounds. Regular rate. Abdomen - soft and benign. Extremities - no pitting edema noted. Skin - Normal skin integrity. Neurological - non focal Psych - calm and appropriate Impression: screening for colon cancer, Discussion/Plan/Recommendati ons: I have discussed the above with the patient. I have offered colonoscopy , possible biopsies I have explained the procedure to the patient. I have counseled the patient as to the risks of the procedure, including but not limited to: infection, bleeding, injury to any intrabdominal organs such as liver/spleen, perforation of the GI tract, inability to complete the procedure, complications of anesthesia, etc. - the patient understands. The patient wishes to proceed. I have answered all questions to the patient?s satisfaction and the patient has no further questions. _ Franchesca Allison MD Normal [facility] UA DIP, URINE (POC)on 2023 BILIRUBIN UA (POCT) Negative Negative [facility] CLARITY UA (POCT) [facility] COLOR [facility]A (POCT) Dark [facility] GLUCOSE UA (POCT) Negative Negative mg/dL [facility] Hemoglobin Ql (U) Small Abnormal Negative [facility] Interpretation and review of laboratory results Abnormal [facility] KETONE UA (POCT) Negative Negative mg/dL [facility] LEUKOCYTES UA (POCT) Negative Negative [facility] NITRITE UA (POCT) Negative Negative [facility] PH UA (POCT) 5.5 4.5 - 8.0 [facility] Protein Ql (U) Negative Negative mg/dL [facility] SPECIFIC GRAVITY UA (POCT) >=1.030 1.005 - 1.030 [facility] UROBILINOGEN UA (POCT) 1.0 Normal E.U./dL [facility] Location:[facility], [address] , [place], [address] [facility] POINT OF CARE [facility] UA DIP, URINE (POC)on 2022 BILIRUBIN UA (POCT) Negative Negative [facility] CLARITY UA (POCT) Clear [facility] COLOR UA (POCT) Dark yellow [facility] GLUCOSE UA (POCT) Negative Negative mg/dL [facility] Hemoglobin Ql (U) Small Abnormal Negative [facility] KETONE UA (POCT) Negative Negative mg/dL [facility] LEUKOCYTES UA (POCT) Negative Negative [facility] NITRITE UA (POCT) Negative Negative [facility] PH UA (POCT) 5.5 4.5 - 8.0 [facility] Protein Ql (U) Negative Negative mg/dL [facility] SPECIFIC GRAVITY UA (POCT) >=1.030 1.005 - 1.030 [facility] UROBILINOGEN UA (POCT) 0.2 E.U./dL Normal E.U./dL [facility] Vital Signs Date Time Vital Sign Value Performing Clinician Faci lity 10-11-2024 10:46-0500 Diastolic blood pressure 73 mm[Hg] Franchesca Allison MD Work Phone: [facility] 10-11-2024 10:46-0500 Respiratory rate 16 /min Franchesca Allison MD Work Phone: [facility] 10-11-2024 10:46-0500 Systolic blood pressure 125 mm[Hg] Franchesca Allison MD Work Phone: [facility] 10-11-2024 10:10-0500 Heart rate 66 /min Franchesca Allison MD Work Phone: [facility] 10-11-2024 10:10-0500 SaO2% (BldA) [Mass fraction] 100 % Franchesca Allison MD Work Phone: [facility] 10-11-2024 09:11-0500 Body mass index (BMI) [Ratio] 30.53 kg/m2 Franchesca Allison MD Work Phone: [facility] 10-11-2024 09:11-0500 Body temperature 96.91 [degF] Franchesca Allison MD Work Phone: [facility] 10-11-2024 09:11-0500 Body weight 102.1 kg Franchesca Allison MD Work Phone: [facility] 05-24-2024 08:06-0400 Body height 182.9 cm Janet Sage PA-C Work Phone: [facility] 05-24-2024 08:06-0400 Body mass index (BMI) [Ratio] 30.52 kg/m2 Janet Sage PA-C Work Phone: [facility] 05-24-2024 08:06-0400 Body temperature 97.59 [degF] Janet Sage PA-C Work Phone: [facility] 05-24-2024 08:06-0400 Body weight 102.06 kg Janet Sage PA-C Work Phone: [facility] 05-24-2024 08:06-0400 Diastolic blood pressure 80 mm[Hg] Janet Sage PA-C Work Phone: [facility] 05-24-2024 08:06-0400 Heart rate 88 /min Janet Sage PA-C Work Phone: [facility] 05-24-2024 08:06-0400 Respiratory rate 14 /min Janet Sage PA-C Work Phone: [facility] 05-24-2024 08:06-0400 SaO2% (BldA) [Mass fraction] 96 % Janet Sage PA-C Work Phone: [facility] 05-24-2024 08:06-0400 Systolic blood pressure 134 mm[Hg] Janet Sage PA-C Work Phone: [facility] 05-12-2024 15:40-0400 Body height 182.9 cm Arlen Floyd MD Work Phone: [facility] 05-12-2024 15:40-0400 Body mass index (BMI) [Ratio] 30.2 kg/m2 Arlen Floyd MD Work Phone: [facility] 05-12-2024 15:40-0400 Body weight 101 kg Arlen Floyd MD Work Phone: [facility] 05-12-2024 15:40-0400 Diastolic blood pressure 89 mm[Hg] Arlen Floyd MD Work Phone: [facility] 05-12-2024 15:40-0400 Heart rate 71 /min Arlen Floyd MD Work Phone: [facility] 05-12-2024 15:40-0400 SaO2% (BldA) [Mass fraction] 94 % Arlen Floyd MD Work Phone: [facility] 05-12-2024 15:40-0400 Systolic blood pressure 136 mm[Hg] Arlen Flody MD Work Phone: [facility] 04-25-2024 09:20-0400 Body mass index (BMI) [Ratio] 29.99 kg/m2 Krislyn Aberegg PA Work Phone: [facility] 04-25-2024 09:20-0400 Body temperature 97.7 [degF] Krislyn Aberegg PA Work Phone: [facility] 04-25-2024 09:20-0400 Body weight 100.3 kg Krislyn Aberegg PA Work Phone: [facility] 04-25-2024 09:20-0400 Diastolic blood pressure 80 mm[Hg] Krislyn Aberegg PA Work Phone: [facility] 04-25-2024 09:20-0400 Heart rate 90 /min Krislyn Aberegg PA Work Phone: [facility] 04-25-2024 09:20-0400 Respiratory rate 20 /min Krislyn Aberegg PA Work Phone: [facility] 04-25-2024 09:20-0400 SaO2% (BldA) [Mass fraction] 98 % Krislyn Aberegg PA Work Phone: [facility] 04-25-2024 09:20-0400 Systolic blood pressure 120 mm[Hg] Nomi Rossieregg PA Work Phone: [facility] 11-28-2023 14:09-0400 Body temperature 98.8 [degF] Bernie Athy PA-C Work Phone: [facility] 11-28-2023 14:09-0400 Body weight 102.8 kg Bernie Athy PA-C Work Phone: [facility] 11-28-2023 14:09-0400 Diastolic blood pressure 80 mm[Hg] Bernie Athy PA-C Work Phone: [facility] 11-28-2023 14:09-0400 Heart rate 92 /min Bernie Athy PA-C Work Phone: [facility] 11-28-2023 14:09-0400 Respiratory rate 16 /min Bernie Athy PA-C Work Phone: [facility] 11-28-2023 14:09-0400 SaO2% (BldA) [Mass fraction] 95 % Bernie Athy PA-C Work Phone: [facility] 11-28-2023 14:09-0400 Systolic blood pressure 122 mm[Hg] Bernie Athy PA-C Work Phone: [facility] 05-19-2023 08:16-0400 Body height 182.9 cm Janet Sage PA-C Work Phone: [facility] 05-19-2023 08:16-0400 Body temperature 98.1 [degF] Janet Sage PA-C Work Phone: [facility] 05-19-2023 08:16-0400 Body weight 101.52 kg Janet Sage PA-C Work Phone: [facility] 05-19-2023 08:16-0400 Diastolic blood pressure 80 mm[Hg] Janet Sage PA-C Work Phone: [facility] 05-19-2023 08:16-0400 Heart rate 82 /min Janet Sage PA-C Work Phone: [facility] 05-19-2023 08:16-0400 Respiratory rate 12 /min Janet Carloney PA-C Work Phone: [facility] 05-19-2023 08:16-0400 SaO2% (BldA) [Mass fraction] 96 % Janet Carloney PA-C Work Phone: [facility] 05-19-2023 08:16-0400 Systolic blood pressure 120 mm[Hg] Janet Carloney PA-C Work Phone: [facility] 01-20-2022 11:16-0400 Diastolic blood pressure 80 mm[Hg] Priya Nanette MARKET CONSULTANT.PROCUREMENT SERVICES MANAGER Work Phone: [facility] 01-20-2022 11:16-0400 Systolic blood pressure 134 mm[Hg] Priya Nanette MARKET CONSULTANT.PROCUREMENT SERVICES MANAGER Work Phone: [facility] 01-20-2022 11:01-0400 Body height 182.9 cm Priya Nanette MARKET CONSULTANT.PROCUREMENT SERVICES MANAGER Work Phone: [facility] 01-20-2022 11:01-0400 Body weight 101.61 kg Priya Nanette MARKET CONSULTANT.PROCUREMENT SERVICES MANAGER Work Phone: [facility] 01-20-2022 11:01-0400 Heart rate 68 /min Priya Nanette MARKET CONSULTANT.PROCUREMENT SERVICES MANAGER Work Phone: [facility] Encounters Encounter Date Encounter Type Care Provider Facility Start: 06-20-2025 End: 06-20-2025 ambulatory David Floyd Facility:[facility] Start: 05-30-2025 End: 05-30-2025 Patient encounter procedure Janet Sage PA-C Work Phone: Urology Comment on above: Elevated PSA (Primar y Dx); Benign prostatic hyperplasia without lower urinary tract symptoms; Screening for genitourinary condition; Family history of malignant neoplasm of prostate Start: 05-30-2025 End: 05-30-2025 ambulatory ARLEN FLOYD Facility:[facility] Start: 05-24-2025 End: 05-24-2025 ambulatory JANET SAGE Facility:[facility] Start: 11-22-2024 End: 11-22-2024 ambulatory JANET SAGE Facility:[facility] Start: 10-11-2024 End: 10-11-2024 ambulatory FRANCHESCA ALLISON Facility:[facility] Start: 10-11-2024 End: 10-11-2024 Subsequent hospital visit by physician Franchesca Allison MD Work Phone: Ambulatory Surgery Comment on above: Benign neoplasm of c olon, unspecified part of colon [D12.6] Start: 09-21-2024 End: 09-21-2024 ambulatory Arlen Floyd MD Work Phone: [facility] Comment on above: Prep for Colonoscopy Start: 05-24-2024 End: 05-24-2024 Patient encounter procedure Janet Karen PA-C Work Phone: Urology Comment on above: Benign prostatic hyp erplasia without lower urinary tract symptoms (Primary Dx); Elevated PSA Start: 05-12-2024 End: 05-12-2024 Patient encounter procedure Arlen Floyd MD Work Phone: [facility] Comment on above: Well adult exam (Venessa julio c Dx); Screening for depression; Encounter for screening examination for other mental health and behavioral disorders; Acquired hypothyroidism; Mixed hyperlipidemia; Elevated PSA; Encounter for immunization; Screening for malignant neoplasm of the rectum; Benign neoplasm of colon, unspecified part of colon; Special screening for malignant neoplasms, colon Start: 05-12-2024 End: 05-12-2024 Patient encounter status Arlen Floyd MD Work Phone: [facility] Work Phone: Start: 05-06-2024 End: 05-06-2024 Refill Arlen Floyd MD Work Phone: [facility] Comment on above: Refill Request Start: 04-26-2024 Telephone encounter David marie APRN.CNP Work Phone: [facility] Comment on above: Results Start: 04-25-2024 End: 04-25-2024 Patient encounter procedure Nomi VERDUGO Work Phone: [facility] Comment on above: Suspected COVID-19 v irus infection (Primary Dx); URI, acute Start: 04-17-2024 Refill Arlen chang MD Work Phone: [facility] Comment on above: Refill Request Start: 12-04-2023 ambulatory Arlen chang MD Work Phone: [facility] Comment on above: Blood Flow Screening Start: 11-28-2023 End: 11-28-2023 Patient encounter procedure Bernie R Dat PA-C Work Phone: [facility] Comment on above: Acute pansinusitis, recurrence not specified (Primary Dx); Lymphadenopathy, cervical Start: 05-19-2023 End: 05-19-2023 Patient encounter procedure Janet Sage PA-C Work Phone: Urology Comment on above: Elevated PSA (Primar y Dx); Benign prostatic hyperplasia without lower urinary tract symptoms Start: 03-19-2023 Refill Priya Nanette A PRN.PROCUREMENT SERVICES MANAGER Work Phone: [facility] Comment on above: Refill Request Start: 05-01-2022 ambulatory Arlen chang MD Work Phone: [facility] Comment on above: Covid 19 Start: 03-25-2022 Telephone encounter Arlen Floyd MD Work Phone: [facility] Comment on above: Medication Request Start: 03-25-2022 End: 03-25-2022 Nursing evaluation of patient and report Nurse Patricia Harp Mc Work Phone: [facility] Comment on above: Encounter for immuni zation (Primary Dx) Start: 02-28-2022 Refill Priya Nanette A PRN.PROCUREMENT SERVICES MANAGER Work Phone: [facility] Comment on above: Refill Request Start: 01-20-2022 End: 01-20-2022 Patient encounter procedure Priya Nanette MARKET CONSULTANT.PROCUREMENT SERVICES MANAGER Work Phone: [facility] Comment on above: Well adult exam (Venessa julio c Dx); Mixed hyperlipidemia; Essential hypertension; Encounter for immunization Start: 01-20-2022 End: 01-20-2022 Patient encounter status Priya Fitzpatrick APRN.PROCUREMENT SERVICES MANAGER Work Phone: [facility] Procedures Date Procedure Procedure Detail Performing Clinician Start: 05-30-2025 Urnls dip stick/tabl et rgnt auto w/o microscopy Janet Sage PA-C Work Phone: Start: 10-11-2024 Colonoscopy flx dx w /collj spec when pfrmd Arlen Floyd MD Work Phone: Start: 10-11-2024 Colonoscopy Franchesca Allison MD Work Phone: Start: 05-24-2024 Urnls dip stick/tabl et rgnt auto w/o microscopy Janet Sage PA-C Work Phone: Start: 05-12-2024 RSV VACCINE, BIVALEN T (ABRYSVO) Arlen Floyd MD Work Phone: Start: 05-12-2024 Adult depression scr eening assessment Arlen Floyd MD Work Phone: Start: 04-19-2024 Lipid 1996 panel - S addie or Plasma Nomi Schneider PA Work Phone: Start: 05-19-2023 Urnls dip stick/tabl et rgnt auto w/o microscopy Janet Sage PA-C Work Phone: Start: 03-31-2023 Lipid 1996 panel - S addie or Plasma Bernie Daugherty PA-C Work Phone: Start: 01-20-2022 Adult depression scr eening assessment Priya Fitzpatrick APRN.PROCUREMENT SERVICES MANAGER Work Phone: Start: 11-09-2019 Colonoscopy Priya reynolds APRN.PROCUREMENT SERVICES MANAGER Work Phone: Plan of Treatment Date Care Activity Detail Author Start: 01-21-2032 Urine microalbumin profile [facility] Start: 05-24-2030 Prostate specific antigen measurement Prostate Cancer Screening Discussion [facility] Start: 10-11-2029 Screening for malign ant neoplasm of colon [facility] Start: 04-19-2029 Lipid panel Lipid Screening [facility] Start: 04-19-2029 Prostate specific antigen measurement Prostate Cancer Screening Discussion [facility] Start: 11-22-2028 Prostate specific antigen measurement Prostate Cancer Screening Discussion [facility] Start: 03-31-2028 Lipid panel Lipid Screening [facility] Start: 03-31-2028 LIPID SCREEN LIPID SCREEN [facility] Start: 03-31-2028 PROSTATE CANCER SCREENING DISCUSSION PROSTATE CANCER SCREENING DISCUSSION [facility] Start: 04-19-2027 Diabetes Screening Diabetes Screenin g [facility] Start: 12-31-2026 LIPID SCREEN LIPID SCREEN [facility] Start: 03-31-2026 DIABETES SCREEN DIABETES SCREEN [facility] Start: 03-31-2026 Diabetes Screening Diabetes Screenin g [facility] Start: 05-30-2025 End: 08-29-2025 ISOPSA ASSAY FOR UROLOGY USE ONLY [facility] Comment on above: Expected: 05/30/2025 (Approximate), Expires: 08/29/2025 Start: 05-24-2025 End: 08-23-2025 Prostate specific Ag [Mass/volume] in Serum or Plasma PROSTATE-SPECIFIC ANTIGEN DIAGNOSTIC Lab Routine Elevated PSA Expected: 05/24/2025 (Approximate), Expires: 08/23/2025 [facility] Comment on above: Expected: 05/24/2025 (Approximate), Expires: 08/23/2025 Start: 05-23-2025 End: 05-23-2025 Patient encounter procedure 05/23/2025 8:00 AM EDT Office Visit Urology [address] [place] [address] Janet Sage PA-C [address] [place] [address] 1 YR F/U ELEVATED PSA Urology Comment on above: 1 YR F/U ELEVATED PS A Start: 05-15-2025 Influenza vaccination Influenza Vacc ine (#1) [facility] Start: 05-12-2025 Annual PCP Team Slag Mixer ziggy Disease Visit Annual PCP Team Chronic Disease Visit [facility] Start: 05-12-2025 Anxiety Screening Anxiety Screening [facility] Start: 05-12-2025 Depression Screening Depression Scre ening [facility] Start: 04-25-2025 BP Controlled (<130/80) BP Controlle d (<130/80) [facility] Start: 03-21-2025 PROSTATE CANCER SCREENING DISCUSSION PROSTATE CANCER SCREENING DISCUSSION [facility] Start: 12-31-2024 DIABETES SCREEN DIABETES SCREEN [facility] Start: 11-21-2024 End: 02-20-2025 Prostate specific Ag [Mass/volume] in Serum or Plasma PROSTATE-SPECIFIC ANTIGEN DIAGNOSTIC Lab Routine Elevated PSA Expected: 11/21/2024 (Approximate), Expires: 02/20/2025 [facility] Comment on above: Expected: 11/21/2024 (Approximate), Expires: 02/20/2025 Start: 10-11-2024 End: 10-11-2024 Patient encounter procedure 10/11/2024 8:15 AM EST Appointment Ambulatory Surgery [address] [place], [place] [address] Franchesca Allison MD [address] [id number] Ambulatory Surgery Start: 09-14-2024 Advance Directive Discussion Advance Directive Discussion [facility] Start: 05-24-2024 End: 05-24-2024 Patient encounter procedure 05/24/2024 8:00 AM EDT Office Visit Urology [address] [place], [place] [id number] Janet Sage PA-C [address] [place] [address] Annual Urology Comment on above: Annual Start: 05-19-2024 End: 07-19-2024 Prostate specific Ag [Mass/volume] in Serum or Plasma PSA/PROSTSPECAG DIAG Lab Routine Elevated PSA Expected: 05/19/2024 (Approximate), Expires: 07/19/2024 [facility] Work Phone: Comment on above: Expected: 05/19/2024 (Approximate), Expires: 07/19/2024 Start: 05-15-2024 Covid-19 Vaccine (4 - 2023-24 season) Covid-19 Vaccine ( season) [facility] Start: 05-15-2024 Covid-19 Vaccine ( season) Covid-19 Vaccine ( season) [facility] Start: 05-15-2024 Influenza vaccination Influenza Vacc ine (#1) [facility] Start: 05-12-2024 End: 05-12-2024 Patient encounter procedure 05/12/2024 3:40 PM EDT Office Visit Family Practice [address] [place], [place] [address] Arlen Floyd MD [address] [place] [address] [place], [place] [id number] Just yearly wellness check. [facility] Comment on above: Just yearly wellness check. Start: 04-20-2024 ANNUAL PCP TEAM ENGLISH PROFESSOR ZIGGY DISEASE VISIT ANNUAL PCP TEAM CHRONIC DISEASE VISIT [facility] Start: 04-20-2024 BP CONTROLLED (<130/80) BP CONTROLLE D (<130/80) [facility] Start: 04-18-2024 End: 07-18-2024 Basic metabolic 2000 panel - Serum or Plasma BASIC METABOLIC PANEL Lab Routine Essential hypertension Expected: 04/18/2024, Expires: 07/18/2024 [facility] Comment on above: Expected: 04/18/2024 , Expires: 07/18/2024 Start: 04-18-2024 End: 07-18-2024 Lipid 1996 panel - Serum or Plasma LIPID PANEL BASIC Lab Routine Mixed hyperlipidemia Expected: 04/18/2024, Expires: 07/18/2024 [facility] Comment on above: Expected: 04/18/2024 , Expires: 07/18/2024 Start: 04-18-2024 End: 07-18-2024 Thyrotropin [Units/volume] in Serum or Plasma THYROID STIMULATING HORMONE Lab Routine Acquired hypothyroidism Expected: 04/18/2024, Expires: 07/18/2024 [facility] Work Phone: Comment on above: Expected: 04/18/2024 , Expires: 07/18/2024 Start: 11-17-2023 End: 01-17-2024 Prostate specific Ag [Mass/volume] in Serum or Plasma PSA/PROSTSPECAG DIAG Lab Routine Elevated PSA Expected: 11/17/2023 (Approximate), Expires: 01/17/2024 [facility] Work Phone: Comment on above: Expected: 11/17/2023 (Approximate), Expires: 01/17/2024 Start: 09-14-2023 Advance Directive Discussion Advance Directive Discussion [facility] Start: 09-14-2023 Depression Assessment Depression Ass essment [facility] Start: 05-15-2023 Covid-19 Vaccine () Covid-19 Vaccine () [facility] Start: 05-15-2023 Influenza vaccination [facility] Start: 01-20-2023 Adult depression screening assessment DEPRESSION SCREENING [facility] Start: 01-20-2023 ANNUAL PCP TEAM ENGLISH PROFESSOR ZIGGY DISEASE VISIT ANNUAL PCP TEAM CHRONIC DISEASE VISIT [facility] Start: 11-09-2022 Colonoscopy COLONOSCOPY [facility] Start: 11-09-2022 COLORECTAL CANCER SCREENING COLORECTAL CANCER SCREENING [facility] Start: 11-09-2022 Screening for malign ant neoplasm of colon [facility] Start: 2022 ADVANCE DIRECTIVE DISCUSSION ADVANCE DIRECTIVE DISCUSSION [facility] Start: 2022 PNEUMOCOCCAL: 65+ (1 - PCV) PNEUMOCOCCAL: 65+ (1 - PCV) [facility] Start: 09-14-2022 DEPRESSION ASSESSMENT DEPRESSION ASS ESSMENT [facility] Start: 05-15-2022 Influenza vaccination C [facility] Start: 03-17-2022 SHINGRIX VACCINE (2 of 2) SHINGRIX VACCINE (2 of 2) [facility] Start: 11-13-2021 COVID-19 VACCINE (4 - Booster for Moderna series) COVID-19 VACCINE (4 - Booster for Moderna series) [facility] Start: 09-10-2021 COVID-19 VACCINE (4 - Booster for Moderna series) COVID-19 VACCINE (4 - Booster for Moderna series) [facility] Start: 09-10-2021 COVID-19 VACCINE (4 - Moderna series) COVID-19 VACCINE (4 - Moderna series) [facility] Start: 2017 RSV Vaccine (1 - 1-d ose 60+ series) RSV Vaccine (1 - 1-dose 60+ series) [facility] Start: 07-23-2015 Screening for malign ant neoplasm of colon Sigmoidoscopy [facility] Start: 07-23-2015 SIGMOIDOSCOPY SIGMOIDOSCOPY [facility] Start: 2002 COLOGUARD (FIT-DNA) COLOGUARD (FIT-D NA) [facility] Start: [address] COLONOGRAPHY [facility] Start: 2002 FECAL OCCULT BLOOD FECAL OCCULT BLOO D [facility] Start: 2002 Screening for malign ant neoplasm of colon [facility] Start: 1975 Anxiety Screening Anxiety Screening [facility] Start: 1975 BP CONTROLLED (<130/80) BP CONTROLLE D (<130/80) [facility] Start: 1975 Depression Screening Depression Scre ening [facility] Basic metabolic 2000 panel - Serum or Plasma BASIC METABOLIC PANEL Lab Routine Essential hypertension 04/19/2024 7:52 AM EDT [facility] Lipid 1996 panel - Serum or Plasma LIPID PANEL BASIC Lab Routine Mixed hyperlipidemia 04/19/2024 7:52 AM EDT [facility] POST VOID RESIDUAL POST VOID RES IDUAL Procedures Routine Elevated PSA Ordered: 05/19/2023 [facility] Work Phone: Comment on above: Ordered: 05/19/2023 POST VOID RESIDUAL POST VOID RES IDUAL Procedures Routine Benign prostatic hyperplasia without lower urinary tract symptoms Elevated PSA Ordered: 05/24/2024 [facility] Work Phone: Comment on above: Ordered: 05/24/2024 POST VOID RESIDUAL POST VOID RES IDUAL Procedures Routine Benign prostatic hyperplasia without lower urinary tract symptoms Screening for genitourinary condition Elevated PSA Ordered: 05/30/2025 [facility] Work Phone: Comment on above: Ordered: 05/30/2025 SARS-CoV-2 (COVID-19 ) RNA [Presence] in Respiratory specimen by SUGAR with probe detection COVID NAAT, UPPER RESPIRATORY, ROUTINE Microbiology Routine Suspected COVID-19 virus infection URI, acute Ordered: 04/25/2024 [facility] Work Phone: Comment on above: Ordered: 04/25/2024 End: 05-12-2025 Screening colonoscopy COLONOSCOPY SCREENING Endoscopy Routine Benign neoplasm of colon, unspecified part of colon 1 Occurrences starting 05/12/2024 until 05/12/2025 [facility] Work Phone: Comment on above: 1 Occurrences starti ng 05/12/2024 until 05/12/2025 Thyrotropin [Units/volume] in Serum or Plasma THYROID STIMULATING HORMONE Lab Routine Acquired hypothyroidism 04/19/2024 7:52 AM EDT [facility] Immunizations Immunization Date Immunization Notes Care Provider Fa cility 05-12-2024 respiratory syncytia l virus (RSV) vaccine, bivalent (ABRYSVO) Arlen Floyd MD Work Phone: [facility] 04-20-2023 pneumococcal (PCV20) vaccine, 20 valent (PREVNAR 20) Janet Sage PA-C Work Phone: [facility] 03-25-2022 zoster vaccine recombinant Nurse Work Phone: [facility] 01-20-2022 tetanus and diphther ia toxoids, adsorbed, preservative free, for adult use (2 Lf of tetanus toxoid and 2 Lf of diphtheria toxoid) Priya Fitzpatrick APRN.PROCUREMENT SERVICES MANAGER Work Phone: [facility] 01-20-2022 zoster vaccine recombinant Priya Nanette MARKET CONSULTANT.PROCUREMENT SERVICES MANAGER Work Phone: [facility] 07-16-2021 COVID-19 vaccine, ag e 12+ yr ([employer] - PURPLE TOP) Priya Nanette MARKET CONSULTANT.PROCUREMENT SERVICES MANAGER Work Phone: [facility] 01-29-2010 tetanus toxoid, redu lizet diphtheria toxoid, and acellular pertussis vaccine, adsorbed Priya Nanette MARKET CONSULTANT.PROCUREMENT SERVICES MANAGER Work Phone: [facility] Work Phone: 10-10-1993 hepatitis B vaccine, pediatric or pediatric/adolescent dosage Priya Nanette MARKET CONSULTANT.PROCUREMENT SERVICES MANAGER Work Phone: [facility] 05-03-1993 hepatitis B vaccine, pediatric or pediatric/adolescent dosage Priya Nanette MARKET CONSULTANT.KORY Work Phone: [facility] 03-25-1993 hepatitis B vaccine, pediatric or pediatric/adolescent dosage Priya Fitzpatrick APRN.KORY Work Phone: [facility] Payers Date Payer Category Payer Self-pay 2019 Private Health Insurance [facility] [id number] 2019-Present [phone] [address] [place] [address] O [id number] 2019 Private Health Insurance [id number] 2019 Unknown [id number] Unknown [id number] Social History Date Type Detail Facility Start: 11-30-2012 Tobacco smoking status ILIS Never smoked tobacco [facility] Start: 01-20-2022 End: 05-12-2024 Alcohol intake Current non-drinker of alcohol (finding) [facility] Start: 01-20-2022 History SDOH Alcohol Frequency 1 [facility] Start: 01-20-2022 History SDOH Social Connections Phone 5 [facility] Start: 01-20-2022 History SDOH Social Connections Get Together 2 [facility] Start: 01-20-2022 History SDOH Social Connections Anglican 3 [facility] Start: 01-24-2020 End: 01-20-2022 History SDOH Physical Activity MPS 15 [facility] Start: 1955 Sex Assigned At Male [facility] Start: 01-10-2022 End: 01-20-2022 Exposure to SARS-CoV-2 (event) Not sure [facility] Start: 11-30-2012 Tobacco use and exposure Smokeless tobacco non-user [facility] Work Phone: Start: 04-14-2023 End: 05-06-2024 History of Social function [facility] Start: 04-14-2023 End: 05-06-2024 Social connection and isolation panel [facility] Do you belong to any clubs or organizations such as rastafarian groups, unions, fraternal or athletic groups, or school groups? No [facility] Are you now , , , , never or living with a partner? [facility] How often to you hav e a drink containing alcohol? Never [facility] Start: 08-15-2012 How many standard drinks containing alcohol do you have on a typical day? Patient does not drink [facility] Do you feel stress - tense, restless, nervous, or anxious, or unable to sleep at night because your mind is troubled all the time - these days [OSQ] Not at all [facility] (I/We) worried alex er (my/our) food would run out before (I/we) got money to buy more. Never true [facility] Start: 10-04-2020 Gender identity Identifies as male gender (finding) [facility] Start: 10-04-2020 Sexual orientation Heterosexual (finding) [facility] Start: 05-24-2024 End: 05-30-2025 Alcoholic beverage intake Ex-drinker (finding) [facility] ziggy Functional Status Date Assessment Result Facility 12-07-2014 Are you deaf, or do you have serious difficulty hearing No 12/07/2014 5:10 PM EDT Jonny Valentin LPN No [facility] 12-07-2014 Are you blind, or do you have serious difficulty seeing, even when wearing glasses No 12/07/2014 5:10 PM EDJonny Chavez LPN No [facility] 12-07-2014 Do you have serious difficulty walking or climbing stairs No 12/07/2014 5:10 PM EDT Jonny Valentin LPN No [facility] 12-07-2014 Do you have difficul ty dressing or bathing No 12/07/2014 5:10 PM EDJonny Chavez LPN No [facility] 12-07-2014 Because of a physica l, mental, or emotional condition, do you have difficulty doing errands alone such as visiting a physician's office or shopping No 12/07/2014 5:10 PM EDJonny Chavez LPN [facility] Mental Status Date Assessment Result Facility 12-07-2014 Because of a physica l, mental, or emotional condition, do you have serious difficulty concentrating, remembering, or making decisions No 12/07/2014 5:10 PM EDT Jonny Valentin LPN No [facility] Clinical Notes 01-20-2022 to 05-30-2025 Janet Sage PA-C - 05/30/2025 2:58 PM Uma De La Fuente LPN - 05/30/2025 2:41 PM [facility] Wanda Lainez RN - 10/11/2024 10:22 AM ESTPatient Instructions Note Date & Type Note Facility 05-30-2025 Note HNO ID: [id number] Author: JANET SAGE PA-C Service: ? Author Type: Physician Architecture Professor Type: Progress Notes Filed: 05/30/2025 16:17 Note Text: [facility] EST PATIENT CLINIC NOTE (M) Some elements copied from his previous note, which have been updated where appropriate, and all reflect current medical decision making from date of this visit. Note was generated by [employer] and edited as appropriate SERVICE DATE: May 30, 2025 NAME: Ilda Larsen GENDER: male CHIEF COMPLAINT: The patient is a 69-year-old male, presenting for evaluation of rising prostate-specific antigen levels and isoform PSA blood testing. HISTORY OF PRESENT ILLNESS: The patient is a 69-year-old male, presenting for evaluation of rising prostate-specific antigen levels and isoform PSA blood testing. Elevated PSA Levels: - Gradual increase in PSA levels over the years, with a more significant rise noted in the past 6 months. - No urinary symptoms reported. - No history of prostate biopsy. - Family history of prostate cancer; brother underwent radical prostatectomy 14 years ago. - No current medications. > We discussed the common causes of urinary frequency and urgency, and restricting water intake In hopes to mitigate the need to urinate, we discussed how this behavior more often worsen the problem not improving it, > We discussed increasing daily water intake to 64-84 oz 7a -7p and try to reduce bladder irritants, caffeine, alcohol and acid foods and drink. > Bladder irritants handout available to patient. LABS: PSA (ng/mL) Date Value 05/24/2025 6.47 11/22/2024 5.95 04/19/2024 4.63 PSA Screening (ng/mL) Date Value 03/21/2020 2.46 02/10/2018 1.63 11/20/2016 1.49 Creatinine Date Value Ref Range Status 04/19/2024 1.05 0.73 - 1.22 mg/dL Final 03/31/2023 0.95 0.73 - 1.22 mg/dL Final 12/31/2021 1.03 0.73 - 1.22 mg/dL Final No results found for: "TESTOST" No results found for: "HCT" PSA (ng/mL) Date Value 05/24/2025 6.47 11/22/2024 5.95 04/19/2024 4.63 PSA Screening (ng/mL) Date Value 03/21/2020 2.46 02/10/2018 1.63 11/20/2016 1.49 MEDICATIONS: aspirin, enteric coated (ASPIRIN, ENTERIC COATED) 81 mg EC tablet Take 81 mg by mouth once daily. levothyroxine (SYNTHROID) 112 mcg tablet Take 1 tablet by mouth once daily. Take on empty stomach. For thyroid. lisinopril (ZESTRIL) 5 mg tablet Take 1.5 tablets by mouth once daily. simvastatin (ZOCOR) 40 mg tablet Take 1 tablet by mouth daily at bedtime. For cholesterol sodium sulfate-potassium sulfate-magnesium sulfate (SUPREP BOWEL PREP KIT) 17.5-3.13-1.6 gram oral liquid Take 1 Bottle by mouth two times a day. PAST MEDICAL HISTORY: PAST MEDICAL HISTORY Diagnosis Date Acquired hypothyroidism Benign neoplasm of colon BPH (benign prostatic hyperplasia) Coronary artery disease Deltoid bursitis Elevated prostate specific antigen (PSA) Essential hypertension HTN (hypertension) Hypercholesteremia Hypothyroidism 2011 Mixed hyperlipidemia Shingles Painful REVIEW OF SYSTEMS: Genitourinary: (-) urinary symptoms PHYSICAL EXAMINATION: General: Well-appearing, alert AND oriented, no acute distress Skin: Normal HEENT: Pupils equal, round. Oral cavity, oropharynx clear Neck: Supple, no mass Breast: Deferred Respiratory: Clear to auscultation, bilaterally Cardiovascular: Regular rate and rhythm, no murmurs, rubs, or gallops Abdomen: Soft, non-tender, non-distended, no masses palpable, no hepatosplenomegaly, normal bowel sounds Genitourinary: Deferred MSK: Back is non-tender Extremities: No clubbing, cyanosis, or edema PROBLEM LIST REVIEW: Yes LABS: Results for orders placed or performed in visit on 05/30/25 UA DIP, URINE (POC) Result Value Ref Range GLUCOSE UA (POCT) Negative Negative mg/dL BILIRUBIN UA (POCT) Negative Negative KETONE UA (POCT) Negative Negative mg/dL SPECIFIC GRAVITY UA (POCT) 1.020 1.005 - 1.030 HEMOGLOBIN/BLOOD UA (POCT) Trace-intact (A) Negative PH UA (POCT) 5.5 4.5 - 8.0 PROTEIN UA (POCT) Negative Negative mg/dL UROBILINOGEN UA (POCT) 1.0 Normal E.U./dL NITRITE UA (POCT) Negative Negative LEUKOCYTES UA (POCT) Negative Negative COLOR UA (POCT) Yellow CLARITY UA (POCT) Clear PROCEDURES: PVR - 0 ml ASSESSMENT/PLAN: 1. Elevated PSA (R97.20) - PSA levels have shown a gradual increase over time, with the most significant change occurring over the past 6 months. Ordered isoPSA blood test to assess for high-grade prostate cancer risk. Patient instructed to complete the blood test today; no fasting required. If isoPSA results indicate greater than 6% matching isoproteins, will proceed with MRI to identify potential lesions before considering a biopsy. Discussed the rationale for MRI prior to biopsy to avoid unnecessary procedures and potential complicat (more content not included)... [facility] 05-30-2025 History of Present illness Narrative Images from the original note were not included. [facility] EST PATIENT CLINIC NOTE (M) Some elements copied from his previous note, which have been updated where appropriate, and all reflect current medical decision making from date of this visit. Note was generated by [employer] and edited as appropriate SERVICE DATE: May 30, 2025 NAME: Ilda Larsen GENDER: male CHIEF COMPLAINT: The patient is a 69-year-old male, presenting for evaluation of rising prostate-specific antigen levels and isoform PSA blood testing. HISTORY OF PRESENT ILLNESS: The patient is a 69-year-old male, presenting for evaluation of rising prostate-specific antigen levels and isoform PSA blood testing. Elevated PSA Levels: - Gradual increase in PSA levels over the years, with a more significant rise noted in the past 6 months. - No urinary symptoms reported. - No history of prostate biopsy. - Family history of prostate cancer; brother underwent radical prostatectomy 14 years ago. - No current medications. > We discussed the common causes of urinary frequency and urgency, and restricting water intake In hopes to mitigate the need to urinate, we discussed how this behavior more often worsen the problem not improving it, > We discussed increasing daily water intake to 64-84 oz 7a -7p and try to reduce bladder irritants, caffeine, alcohol and acid foods and drink. > Bladder irritants handout available to patient. LABS: PSA (ng/mL) Date Value 05/24/2025 6.47 11/22/2024 5.95 04/19/2024 4.63 PSA Screening (ng/mL) Date Value 03/21/2020 2.46 02/10/2018 1.63 11/20/2016 1.49 Creatinine Date Value Ref Range Status 04/19/2024 1.05 0.73 - 1.22 mg/dL Final 03/31/2023 0.95 0.73 - 1.22 mg/dL Final 12/31/2021 1.03 0.73 - 1.22 mg/dL Final No results found for: "TESTOST" No results found for: "HCT" PSA (ng/mL) Date Value 05/24/2025 6.47 11/22/2024 5.95 04/19/2024 4.63 PSA Screening (ng/mL) Date Value 03/21/2020 2.46 02/10/2018 1.63 11/20/2016 1.49 MEDICATIONS: aspirin, enteric coated (ASPIRIN, ENTERIC COATED) 81 mg EC tablet Take 81 mg by mouth once daily. levothyroxine (SYNTHROID) 112 mcg tablet Take 1 tablet by mouth once daily. Take on empty stomach. For thyroid. lisinopril (ZESTRIL) 5 mg tablet Take 1.5 tablets by mouth once daily. simvastatin (ZOCOR) 40 mg tablet Take 1 tablet by mouth daily at bedtime. For cholesterol sodium sulfate-potassium sulfate-magnesium sulfate (SUPREP BOWEL PREP KIT) 17.5-3.13-1.6 gram oral liquid Take 1 Bottle by mouth two times a day. PAST MEDICAL HISTORY: PAST MEDICAL HISTORY Diagnosis Date Acquired hypothyroidism Benign neoplasm of colon BPH (benign prostatic hyperplasia) Coronary artery disease Deltoid bursitis Elevated prostate specific antigen (PSA) Essential hypertension HTN (hypertension) Hypercholesteremia Hypothyroidism 2011 Mixed hyperlipidemia Shingles Painful REVIEW OF SYSTEMS: Genitourinary: (-) urinary symptoms PHYSICAL EXAMINATION: General: Well-appearing, alert & oriented, no acute distress Skin: Normal HEENT: Pupils equal, round. Oral cavity, oropharynx clear Neck: Supple, no mass Breast: Deferred Respiratory: Clear to auscultation, bilaterally Cardiovascular: Regular rate and rhythm, no murmurs, rubs, or gallops Abdomen: Soft, non-tender, non-distended, no masses palpable, no hepatosplenomegaly, normal bowel sounds Genitourinary: Deferred MSK: Back is non-tender Extremities: No clubbing, cyanosis, or edema PROBLEM LIST REVIEW: Yes LABS: Results for orders placed or performed in visit on 05/30/25 UA DIP, URINE (POC) Result Value Ref Range GLUCOSE UA (POCT) Negative Negative mg/dL BILIRUBIN UA (POCT) Negative Negative KETONE UA (POCT) Negative Negative mg/dL SPECIFIC GRAVITY UA (POCT) 1.020 1.005 - 1.030 HEMOGLOBIN/BLOOD UA (POCT) Trace-intact (A) Negative PH UA (POCT) 5.5 4.5 - 8.0 PROTEIN UA (POCT) Negative Negative mg/dL UROBILINOGEN UA (POCT) 1.0 Normal E.U./dL NITRITE UA (POCT) Negative Negative LEUKOCYTES UA (POCT) Negative Negative COLOR UA (POCT) Yellow CLARITY UA (POCT) Clear PROCEDURES: PVR - 0 ml ASSESSMENT/PLAN: 1. Elevated PSA (R97.20) - PSA levels have shown a gradual increase over time, with the most significant change occurring over the past 6 months. Ordered isoPSA blood test to assess for high-grade prostate cancer risk. Patient instructed to complete the blood test today; no fasting required. If isoPSA results indicate greater than 6% matching isoproteins, will proceed with MRI to identify potential lesions before considering a biopsy. Discussed the rationale for MRI prior to biopsy to avoid unnecessary procedures and potential complications. Patient understands and agrees with the plan. 2. Benign prostatic hyperplasia without lower urinary tract symptoms (N40.0) - No current urinary symptoms reported. Continue monitoring. 3. Screening for genitourinary condition (Z13.89) - Initiated isoPSA testing as part of screening for potential high-grade prostate cancer. 4. Family history of malignant neoplasm of prostate (Z80.42) - Brother had prostate cancer treated with radical prostatectomy 14 years ago. Discussed increased risk due to family history. > Follow-up to be determined by testing ordered today > Will contact patient with the Results & Recommendations once testing is completed Patient Instructions (AVS) - printed for patient - An isoprotein (isoPSA) blood test has been ordered; go to the lab on the first floor near the oncology check-in desk today--no fasting required. - Results will be available through [facility]; if the isoPSA shows over 6% of the risk markers we discussed, we will move to the next step. - We ll request insurance approval for a prostate MRI first; if it s approved, you or our team will schedule it. If the MRI isn t covered, a biopsy may be required before the MRI. - If the MRI reveals a suspicious area, plan for a targeted prostate biopsy (we typically refer to [facility] unless you d prefer another center). - If the MRI shows no lesions, we ll cancel the biopsy plan and continue annual PSA monitoring. LARRY Foster MT, PA-C Verified name and date of . CC Post Void Residual HPI: Ilda Larsen is a 69 year old male. The patient is here now for an appointment with LARRY Foster MT, PA-COV. Procedure: Explained procedure to patient and verbalizes understanding. Performed a PVR. Patient urinated and instructed to empty bladder as much as possible just prior to having PVR done using bladder ultrasound scanner. Results of scan: 0 mL The patient tolerated the procedure well. Plan: Appointment with Janet. documented in this encounter [facility] 05-30-2025 Note HNO ID: [id number] Author: UMA BLACK LPN Service: ? Author Type: Licensed Nurse Type: Progress Notes Filed: 05/30/2025 16:17 Note Text: Verified name and date of . CC Post Void Residual HPI: Ilda Larsen is a 69 year old male. The patient is here now for an appointment with Janet Sage, ALICIAS, MT, PA-COV. Procedure: Explained procedure to patient and verbalizes understanding. Performed a PVR. Patient urinated and instructed to empty bladder as much as possible just prior to having PVR done using bladder ultrasound scanner. Results of scan: 0 mL The patient tolerated the procedure well. Plan: Appointment with Janet. [facility] 10-11-2024 Note Formatting of this n ote might be different from the original. The patient received a copy of Colonoscopy discharge instructions that contain information for how to contact the physician who performed the procedure and when to seek medical care. [facility] 10-11-2024 Miscellaneous Notes The patient received a copy of Colonoscopy discharge instructions that contain information for how to contact the physician who performed the procedure and when to seek medical care. documented in this encounter [facility] 10-11-2024 Attending History and physical note UPDATED PROCEDURAL SEDATION HISTORY AND PHYSICAL EXAMINATION SERVICE DATE: 10/11/2024 SERVICE TIME: 9:39 PHYSICAL EXAM MUST BE COMPLETED ON ADMISSION PROCEDURE: colonoscopy, possible biopsies Procedure Indications: history or colon polyps The History and Physical (completed in the past 30 days) has been reviewed and the patient has been examined. The contents accurately reflect the patient's condition with the following additions or revisions since the H&P was completed. ASA Class: ASA Class: Patient with mild systemic disease Examination indicates no changes. AIRWAY: Airway Visualization of Uvula: Yes Mouth opening greater than 2 fingerbreadths: Yes Neck Full Range of Motion: Yes LUNGS: Lungs clear to auscultation CARDIAC: Regular rhythm,Regular rate Provisional Diagnosis/Treatment Plan: colonoscopy, opssible ibopsies Sedation Goal: Moderate This H&P can be found in the Electronic Medical Record . SIGNATURE: Franchesca Allison MD PATIENT NAME: Ilda Larsen DATE: October 11, 2024 TIME: 9:39 AM Source Note - Franchesca Allison MD - 10/11/2024 9:45 AM EST HISTORY AND PHYSICAL Ilda Larsen 1955 REFERRING PHYSICIAN: Arlen Floyd MD CHIEF COMPLAINT: No chief complaint on file. HPI: The patient is a 69 year old male here for colonoscopy.for screening for colon cancer Last had colonoscopy 2019 findings of polyp PAST MEDICAL HISTORY Diagnosis Date Acquired hypothyroidism Benign neoplasm of colon BPH (benign prostatic hyperplasia) Coronary artery disease Deltoid bursitis Elevated prostate specific antigen (PSA) Essential hypertension HTN (hypertension) Hypercholesteremia Hypothyroidism 2010 Mixed hyperlipidemia Shingles Painful PAST SURGICAL HISTORY Procedure Laterality Date COLONOSCOPY FLX DX W/COLLJ SPEC WHEN PFRMD 1998 Colonoscopy COLONOSCOPY FLX DX W/COLLJ SPEC WHEN PFRMD 11/09/2019 Colonoscopy COLSC FLX W/RMVL OF TUMOR POLYP LESION SNARE TQ 04/23/10 SIGMOIDOSCOPY FLX DX W/COLLJ SPEC BR/WA IF PFRMD 07/23/2010 Sigmoidoscopy, flexible VASECTOMY UNI/BI SPX W/POSTOP SEMEN EXAMS Current Outpatient Medications Medication Sig sodium sulfate-potassium sulfate-magnesium sulfate (SUPREP BOWEL PREP KIT) 17.5-3.13-1.6 gram oral liquid Take 1 Bottle by mouth two times a day. aspirin, enteric coated (ASPIRIN, ENTERIC COATED) 81 mg EC tablet Take 81 mg by mouth once daily. levothyroxine (SYNTHROID) 112 mcg tablet Take 1 tablet by mouth once daily. Take on empty stomach. For thyroid. lisinopril (ZESTRIL) 5 mg tablet Take 1.5 tablets by mouth once daily. simvastatin (ZOCOR) 40 mg tablet Take 1 tablet by mouth daily at bedtime. For cholesterol No current facility-administered medications for this encounter. ALLERGIES: Patient has no known allergies. PERSONAL HISTORY: Social History Tobacco Use Smoking status: Never Smokeless tobacco: Never Vaping Use Vaping status: Never Used Substance Use Topics Alcohol use: Not Currently Drug use: Never FAMILY HISTORY Problem Relation Age of Onset Lipids Brother Prostate Cancer Brother REVIEW OF SYSTEMS: Denies chest pain Denies shortness of breath Physical examination: Vital signs in chart, reviewed and noted by me General - WD/WN in no apparent distress, alert and oriented Head - Normocephalic. EOM intact with sclera clear. Mouth with mucus membranes moist. Neck - supple with no jugular venous distention noted. Trachea is midline. Lungs - normal breath sounds, normal respiratory motion, no adventitial sounds noted. Heart - normal heart sounds. Regular rate. Abdomen - soft and benign. Extremities - no pitting edema noted. Skin - Normal skin integrity. Neurological - non focal Psych - calm and appropriate Impression: screening for colon cancer, Discussion/Plan/Recommendations: I have discussed the above with the patient. I have offered colonoscopy , possible biopsies I have explained the procedure to the patient. I have counseled the patient as to the risks of the procedure, including but not limited to: infection, bleeding, injury to any intrabdominal organs such as liver/spleen, perforation of the GI tract, inability to complete the procedure, complications of anesthesia, etc. - the patient understands. The patient wishes to proceed. I have answered all questions to the patient s satisfaction and the patient has no further questions. Franchesca Allison MD [facility] 10-11-2024 History and physical note HISTORY AND PHYSICAL Ilda Larsen 1955 REFERRING PHYSICIAN: Arlen Floyd MD CHIEF COMPLAINT: No chief complaint on file. HPI: The patient is a 69 year old male here for colonoscopy.for screening for colon cancer Last had colonoscopy 2019 findings of polyp PAST MEDICAL HISTORY Diagnosis Date Acquired hypothyroidism Benign neoplasm of colon BPH (benign prostatic hyperplasia) Coronary artery disease Deltoid bursitis Elevated prostate specific antigen (PSA) Essential hypertension HTN (hypertension) Hypercholesteremia Hypothyroidism 2010 Mixed hyperlipidemia Shingles Painful PAST SURGICAL HISTORY Procedure Laterality Date COLONOSCOPY FLX DX W/COLLJ SPEC WHEN PFRMD 1998 Colonoscopy COLONOSCOPY FLX DX W/COLLJ SPEC WHEN PFRMD 11/09/2019 Colonoscopy COLSC FLX W/RMVL OF TUMOR POLYP LESION SNARE TQ 04/23/10 SIGMOIDOSCOPY FLX DX W/COLLJ SPEC BR/WA IF PFRMD 07/23/2010 Sigmoidoscopy, flexible VASECTOMY UNI/BI SPX W/POSTOP SEMEN EXAMS Current Outpatient Medications Medication Sig sodium sulfate-potassium sulfate-magnesium sulfate (SUPREP BOWEL PREP KIT) 17.5-3.13-1.6 gram oral liquid Take 1 Bottle by mouth two times a day. aspirin, enteric coated (ASPIRIN, ENTERIC COATED) 81 mg EC tablet Take 81 mg by mouth once daily. levothyroxine (SYNTHROID) 112 mcg tablet Take 1 tablet by mouth once daily. Take on empty stomach. For thyroid. lisinopril (ZESTRIL) 5 mg tablet Take 1.5 tablets by mouth once daily. simvastatin (ZOCOR) 40 mg tablet Take 1 tablet by mouth daily at bedtime. For cholesterol No current facility-administered medications for this encounter. ALLERGIES: Patient has no known allergies. PERSONAL HISTORY: Social History Tobacco Use Smoking status: Never Smokeless tobacco: Never Vaping Use Vaping status: Never Used Substance Use Topics Alcohol use: Not Currently Drug use: Never FAMILY HISTORY Problem Relation Age of Onset Lipids Brother Prostate Cancer Brother REVIEW OF SYSTEMS: Denies chest pain Denies shortness of breath Physical examination: Vital signs in chart, reviewed and noted by me General - WD/WN in no apparent distress, alert and oriented Head - Normocephalic. EOM intact with sclera clear. Mouth with mucus membranes moist. Neck - supple with no jugular venous distention noted. Trachea is midline. Lungs - normal breath sounds, normal respiratory motion, no adventitial sounds noted. Heart - normal heart sounds. Regular rate. Abdomen - soft and benign. Extremities - no pitting edema noted. Skin - Normal skin integrity. Neurological - non focal Psych - calm and appropriate Impression: screening for colon cancer, Discussion/Plan/Recommendations: I have discussed the above with the patient. I have offered colonoscopy , possible biopsies I have explained the procedure to the patient. I have counseled the patient as to the risks of the procedure, including but not limited to: infection, bleeding, injury to any intrabdominal organs such as liver/spleen, perforation of the GI tract, inability to complete the procedure, complications of anesthesia, etc. - the patient understands. The patient wishes to proceed. I have answered all questions to the patient s satisfaction and the patient has no further questions. Franchesca Allison MD [facility] 10-11-2024 History and physical note UPDATED PROCEDURAL SEDATION HISTORY AND PHYSICAL EXAMINATION SERVICE DATE: 10/11/2024 SERVICE TIME: 9:39 PHYSICAL EXAM MUST BE COMPLETED ON ADMISSION PROCEDURE: colonoscopy, possible biopsies Procedure Indications: history or colon polyps The History and Physical (completed in the past 30 days) has been reviewed and the patient has been examined. The contents accurately reflect the patient's condition with the following additions or revisions since the H&P was completed. ASA Class: ASA Class: Patient with mild systemic disease Examination indicates no changes. AIRWAY: Airway Visualization of Uvula: Yes Mouth opening greater than 2 fingerbreadths: Yes Neck Full Range of Motion: Yes LUNGS: Lungs clear to auscultation CARDIAC: Regular rhythm,Regular rate Provisional Diagnosis/Treatment Plan: colonoscopy, opssible ibopsies Sedation Goal: Moderate This H&P can be found in the Electronic Medical Record . SIGNATURE: Franchesca Allison MD PATIENT NAME: Ilda Larsen DATE: October 11, 2024 TIME: 9:39 AM Source Note - Franchesca Allison MD - 10/11/2024 9:45 AM EST HISTORY AND PHYSICAL Ilda Larsen 1955 REFERRING PHYSICIAN: Arlen Floyd MD CHIEF COMPLAINT: No chief complaint on file. HPI: The patient is a 69 year old male here for colonoscopy.for screening for colon cancer Last had colonoscopy 2019 findings of polyp PAST MEDICAL HISTORY Diagnosis Date Acquired hypothyroidism Benign neoplasm of colon BPH (benign prostatic hyperplasia) Coronary artery disease Deltoid bursitis Elevated prostate specific antigen (PSA) Essential hypertension HTN (hypertension) Hypercholesteremia Hypothyroidism 2011 Mixed hyperlipidemia Shingles Painful PAST SURGICAL HISTORY Procedure Laterality Date COLONOSCOPY FLX DX W/COLLJ SPEC WHEN PFRMD 1998 Colonoscopy COLONOSCOPY FLX DX W/COLLJ SPEC WHEN PFRMD 11/09/2019 Colonoscopy COLSC FLX W/RMVL OF TUMOR POLYP LESION SNARE TQ 04/23/10 SIGMOIDOSCOPY FLX DX W/COLLJ SPEC BR/WA IF PFRMD 07/23/2010 Sigmoidoscopy, flexible VASECTOMY UNI/BI SPX W/POSTOP SEMEN EXAMS Current Outpatient Medications Medication Sig sodium sulfate-potassium sulfate-magnesium sulfate (SUPREP BOWEL PREP KIT) 17.5-3.13-1.6 gram oral liquid Take 1 Bottle by mouth two times a day. aspirin, enteric coated (ASPIRIN, ENTERIC COATED) 81 mg EC tablet Take 81 mg by mouth once daily. levothyroxine (SYNTHROID) 112 mcg tablet Take 1 tablet by mouth once daily. Take on empty stomach. For thyroid. lisinopril (ZESTRIL) 5 mg tablet Take 1.5 tablets by mouth once daily. simvastatin (ZOCOR) 40 mg tablet Take 1 tablet by mouth daily at bedtime. For cholesterol No current facility-administered medications for this encounter. ALLERGIES: Patient has no known allergies. PERSONAL HISTORY: Social History Tobacco Use Smoking status: Never Smokeless tobacco: Never Vaping Use Vaping status: Never Used Substance Use Topics Alcohol use: Not Currently Drug use: Never FAMILY HISTORY Problem Relation Age of Onset Lipids Brother Prostate Cancer Brother REVIEW OF SYSTEMS: Denies chest pain Denies shortness of breath Physical examination: Vital signs in chart, reviewed and noted by me General - WD/WN in no apparent distress, alert and oriented Head - Normocephalic. EOM intact with sclera clear. Mouth with mucus membranes moist. Neck - supple with no jugular venous distention noted. Trachea is midline. Lungs - normal breath sounds, normal respiratory motion, no adventitial sounds noted. Heart - normal heart sounds. Regular rate. Abdomen - soft and benign. Extremities - no pitting edema noted. Skin - Normal skin integrity. Neurological - non focal Psych - calm and appropriate Impression: screening for colon cancer, Discussion/Plan/Recommendations: I have discussed the above with the patient. I have offered colonoscopy , possible biopsies I have explained the procedure to the patient. I have counseled the patient as to the risks of the procedure, including but not limited to: infection, bleeding, injury to any intrabdominal organs such as liver/spleen, perforation of the GI tract, inability to complete the procedure, complications of anesthesia, etc. - the patient understands. The patient wishes to proceed. I have answered all questions to the patient s satisfaction and the patient has no further questions. Franchesca Allison MD HISTORY AND PHYSICAL Ilad Larsen 1955 REFERRING PHYSICIAN: Arlen Floyd MD CHIEF COMPLAINT: No chief complaint on file. HPI: The patient is a 69 year old male here for colonoscopy.for screening for colon cancer Last had colonoscopy 2019 findings of polyp PAST MEDICAL HISTORY Diagnosis Date Acquired hypothyroidism Benign neoplasm of colon BPH (benign prostatic hyperplasia) Coronary artery disease Deltoid bursitis Elevated prostate specific antigen (PSA) Essential hypertension HTN (hypertension) Hypercholesteremia Hypothyroidism 2010 Mixed hyperlipidemia Shingles Painful PAST SURGICAL HISTORY Procedure Laterality Date COLONOSCOPY FLX DX W/COLLJ SPEC WHEN PFRMD 1998 Colonoscopy COLONOSCOPY FLX DX W/COLLJ SPEC WHEN PFRMD 11/09/2019 Colonoscopy COLSC FLX W/RMVL OF TUMOR POLYP LESION SNARE TQ 04/23/10 SIGMOIDOSCOPY FLX DX W/COLLJ SPEC BR/WA IF PFRMD 07/23/2010 Sigmoidoscopy, flexible VASECTOMY UNI/BI SPX W/POSTOP SEMEN EXAMS Current Outpatient Medications Medication Sig sodium sulfate-potassium sulfate-magnesium sulfate (SUPREP BOWEL PREP KIT) 17.5-3.13-1.6 gram oral liquid Take 1 Bottle by mouth two times a day. aspirin, enteric coated (ASPIRIN, ENTERIC COATED) 81 mg EC tablet Take 81 mg by mouth once daily. levothyroxine (SYNTHROID) 112 mcg tablet Take 1 tablet by mouth once daily. Take on empty stomach. For thyroid. lisinopril (ZESTRIL) 5 mg tablet Take 1.5 tablets by mouth once daily. simvastatin (ZOCOR) 40 mg tablet Take 1 tablet by mouth daily at bedtime. For cholesterol No current facility-administered medications for this encounter. ALLERGIES: Patient has no known allergies. PERSONAL HISTORY: Social History Tobacco Use Smoking status: Never Smokeless tobacco: Never Vaping Use Vaping status: Never Used Substance Use Topics Alcohol use: Not Currently Drug use: Never FAMILY HISTORY Problem Relation Age of Onset Lipids Brother Prostate Cancer Brother REVIEW OF SYSTEMS: Denies chest pain Denies shortness of breath Physical examination: Vital signs in chart, reviewed and noted by me General - WD/WN in no apparent distress, alert and oriented Head - Normocephalic. EOM intact with sclera clear. Mouth with mucus membranes moist. Neck - supple with no jugular venous distention noted. Trachea is midline. Lungs - normal breath sounds, normal respiratory motion, no adventitial sounds noted. Heart - normal heart sounds. Regular rate. Abdomen - soft and benign. Extremities - no pitting edema noted. Skin - Normal skin integrity. Neurological - non focal Psych - calm and appropriate Impression: screening for colon cancer, Discussion/Plan/Recommendations: I have discussed the above with the patient. I have offered colonoscopy , possible biopsies I have explained the procedure to the patient. I have counseled the patient as to the risks of the procedure, including but not limited to: infection, bleeding, injury to any intrabdominal organs such as liver/spleen, perforation of the GI tract, inability to complete the procedure, complications of anesthesia, etc. - the patient understands. The patient wishes to proceed. I have answered all questions to the patient s satisfaction and the patient has no further questions. Franchesca Allison MD documented in this encounter [facility] 09-21-2024 Telephone encounter Note I sent over the Suprep , the prep Dr Luis Villar prescribed in the past. The following approved medication requests have been transmitted electronically. Requested Prescriptions Signed Prescriptions Disp Refills sodium sulfate-potassium sulfate-magnesium sulfate (SUPREP BOWEL PREP KIT) 17.5-3.13-1.6 gram oral liquid 354 mL 0 Sig: Take 1 Bottle by mouth two times a day. Pharmacy Information Pharmacy Address Telephone [facility]/pharmacy #[id number] [place] [address] Arlen Floyd MD [facility] 09-21-2024 Miscellaneous Notes I sent over the Suprep , the prep Dr Luis Villar prescribed in the past. The following approved medication requests have been transmitted electronically. Requested Prescriptions Signed Prescriptions Disp Refills sodium sulfate-potassium sulfate-magnesium sulfate (SUPREP BOWEL PREP KIT) 17.5-3.13-1.6 gram oral liquid 354 mL 0 Sig: Take 1 Bottle by mouth two times a day. Pharmacy Information Pharmacy Address Telephone [facility]/pharmacy #[id number] [facility] [place] [address] Arlen Floyd MD documented in this encounter [facility] 05-24-2024 Instructions Janet Sage PA-C - 05/24/2024 8:21 AM EDT > 6 months for PSA, No Appointment Needed 11/2024 > 1 year Appointment with PSA prior 05/2025 > Future PSA orders are in EPIC documented in this encounter [facility] 05-24-2024 History of Present illness Narrative Images from the original note were not included. [facility] EST PATIENT CLINIC NOTE NAME: Ilda Larsen CHIEF COMPLAINT: Elevated PSA Annual Follow-up HISTORY OF PRESENT ILLNESS: Ilda Larsen is a 68 year old male presenting with PSA of 4.63,patient reports having no LUTS, brother had CaP s/p RP and Radiation in his late 50 's Discussed 6 mo and 1 yr PSA to allow closer monitoring and to make sure any sudden increase is addressed appropriately if PSA >5.0 consider IsoPSA LUTS: None Other symptoms: LABS: PSA (ng/mL) Date Value 04/19/2024 4.63 11/23/2023 4.31 PSA Screening (ng/mL) Date Value 03/31/2023 4.27 03/21/2020 2.46 02/10/2018 1.63 11/20/2016 1.49 12/04/2015 1.26 MEDICATIONS: aspirin, enteric coated (ASPIRIN, ENTERIC COATED) 81 mg EC tablet Take 81 mg by mouth once daily. levothyroxine (SYNTHROID) 112 mcg tablet Take 1 tablet by mouth once daily. Take on empty stomach. For thyroid. lisinopril (ZESTRIL) 5 mg tablet Take 1.5 tablets by mouth once daily. simvastatin (ZOCOR) 40 mg tablet Take 1 tablet by mouth daily at bedtime. For cholesterol PAST MEDICAL HISTORY: PAST MEDICAL HISTORY No date: Acquired hypothyroidism No date: Benign neoplasm of colon No date: BPH (benign prostatic hyperplasia) No date: Coronary artery disease No date: Deltoid bursitis No date: Elevated prostate specific antigen (PSA) No date: Essential hypertension No date: HTN (hypertension) No date: Hypercholesteremia 2011: Hypothyroidism No date: Mixed hyperlipidemia No date: Shingles Comment: Painful REVIEW OF SYSTEMS: GENERAL: No fever, chills, weight loss, or fatigue. PHYSICAL EXAMINATION: Blood pressure 134/80, pulse 88, temperature 36.4 C (97.6 F), temperature source Temporal, resp. rate 14, height 182.9 cm (6'), weight 102.1 kg (225 lb), SpO2 96%. GENERAL: WNL nutrition, no deformities, healthy appearing GENITOURINARY: MALE EXAM: Rectal Exam: Prostate: size (35 grams), symmetrical, nontender, w/o nodules. PROBLEM LIST REVIEW: Yes LABS: Results for orders placed or performed in visit on 05/24/24 UA DIP, URINE (POC) Result Value Ref Range GLUCOSE UA (POCT) Negative Negative mg/dL BILIRUBIN UA (POCT) Negative Negative KETONE UA (POCT) Negative Negative mg/dL SPECIFIC GRAVITY UA (POCT) >=1.030 1.005 - 1.030 HEMOGLOBIN/BLOOD UA (POCT) Small (A) Negative PH UA (POCT) 5.5 4.5 - 8.0 PROTEIN UA (POCT) Negative Negative mg/dL UROBILINOGEN UA (POCT) 1.0 Normal E.U./dL NITRITE UA (POCT) Negative Negative LEUKOCYTES UA (POCT) Negative Negative COLOR UA (POCT) Dark yellow CLARITY UA (POCT) Clear PROCEDURES: PVR: 0 ml IMPRESSION/PLAN: 1. Benign prostatic hyperplasia without lower urinary tract symptoms - ICD9: 600.00, ICD10: N40.0 (primary diagnosis) - POST VOID RESIDUAL - 0 ml 2. Elevated PSA - ICD9: 790.93, ICD10: R97.20 > PSA - 4.63 (2023) Chronic stable, well controlled > 6 months for PSA, No Appointment Needed - 11/2024 > 1 year Appointment with PSA prior - 05/2025 > Future PSA orders are in Epic > IsoPSA if > 5 LARRY Foster MT, PA-C Verified name and date of . CC Post Void Residual HPI: Ilda Larsen is a 68 year old male. The patient is here now for an appointment with LARRY Foster MT, PA-COV. Procedure: Explained procedure to patient and verbalizes understanding. Performed a PVR. Patient urinated and instructed to empty bladder as much as possible just prior to having PVR done using bladder ultrasound scanner. Results of scan: 0 mL The patient tolerated the procedure well. Plan: Appointment with Janet. documented in this encounter [facility] 05-12-2024 History of Present illness Narrative WSTR OPEN ACCESS QUESTIONNAIRE 1. Are you currently having any new or unusual stomach/gastrointestinal issues at this time such as constipation, diarrhea, abdominal pain, rectal bleeding etc?No 2. Do you have any difficulty swallowing? No 3. Do you have any implanted devices such as a defibrillator, pacemaker, cardiac stents or deep brain stimulator? No 4. Do you take any Blood thinners such as Coumadin, Plavix, Xarelto, Eliquis, Brilinta or any other blood thinner? No 5. Do you have any new or past cardiac (heart) or pulmonary (lung) issues? No 6. Do you currently use any oxygen? No 7. Have you been hospitalized in the past 6 weeks? No 8. Have you had difficulty with anesthesia previously re: Difficult intubation? No Other difficulty or allergic reaction to anesthesia other than post op N/V? No 9. Are you on dialysis? No 10. Do you have any bleeding disorders such as hemophilia or Factor 5? No 11. Are you an Insulin Dependent Diabetic? No IF ANY OF THE TOP ELEVEN QUESTIONS ARE ANSWERED YES PLEASE SCHEDULE THE PATIENT FOR A CONSULT. advised 12. Is the patient's BMI 40 or greater? No:Body mass index is 30.2 kg/m .. 13. Do you take any narcotics or anti-Anxiety medications? No 14. Do you use any illegal or recreational drugs including marijuana? No 15. Any alcohol use: No. 16. Have you been diagnosed with chronic liver disease such as hepatitis or cirrhosis? No 17. Do you have a seizure disorder? No 18. Do you have ulcerative colitis or Crohn's disease? No 19. Are you or could you be ? NA 20. Any other important health information we should be made aware of prior to your colonoscopy? No To be completed by LIP: Did patient have MAC anesthesia with a previous endoscopy procedure? No Patient appropriate for Open Access Colonoscopy: Yes: appropriate for Open Access Procedure Checklist: Prior to closing the encounter: Complete questionnaire: Yes Confirm Prep order has been Ordered/Pended: Yes Patient's procedure could be delayed if not given the script for the prep. Please ensure the prep is escripted to pharmacy or printed. Instructions for the prep will print upon filing or pending this smartset. Please send all open access questionnaires to [facility] Pool #[id number] CHIEF COMPLAINT Patient presents with: Yearly Exam HISTORY OF PRESENT ILLNESS Ilda Larsen is a 68 year old male who presents here today for annual exam. I last saw this patient on 04/20/2023. Hypertension - Currently managed on lisinopril 5 mg tablet (1.5 tablets) once daily - Adherent to regimen - BP mildly elevated today in office - Does not monitor BP at home Elevated PSA - PSA 4.63 per recent lab - Follows with urology - Denies urinary symptoms Colon Cancer Screening - Due for colonoscopy - Last completed in 2019, found to have 2 polyps (sessile polyp and tubular adenoma) Health Maintenance: Due for Colorectal Cancer Screening (Colonoscopy- Required) Due for Covid-19 Vaccine ( season) Due for Annal PCP Team Chronic Disease Visit Due for RSV Vaccine (1-1 dose 60+ series) Due for Advance Directive Discussion Past, family and social history reviewed. PAST MEDICAL HISTORY PAST MEDICAL HISTORY No date: Acquired hypothyroidism No date: Benign neoplasm of colon No date: Coronary artery disease No date: Deltoid bursitis No date: Essential hypertension No date: HTN (hypertension) No date: Hypercholesteremia 2011: Hypothyroidism No date: Mixed hyperlipidemia No date: Shingles Comment: Painful PAST SURGICAL HISTORY 1998: COLONOSCOPY FLX DX W/COLLJ SPEC WHEN PFRMD Comment: Colonoscopy 11/09/2019: COLONOSCOPY FLX DX W/COLLJ SPEC WHEN PFRMD Comment: Colonoscopy 04/23/10: COLSC FLX W/RMVL OF TUMOR POLYP LESION SNARE TQ 07/23/2010: SIGMOIDOSCOPY FLX DX W/COLLJ SPEC BR/WA IF PFRMD Comment: Sigmoidoscopy, flexible No date: VASECTOMY UNI/BI SPX W/POSTOP SEMEN EXAMS ALLERGIES Patient has no known allergies. FAMILY HISTORY Problem Relation Age of Onset Lipids Brother Prostate Cancer Brother Social History Tobacco Use Smoking status: Never Smokeless tobacco: Never Vaping Use Vaping status: Never Used Substance Use Topics Alcohol use: No Drug use: No REVIEW OF SYSTEMS General: Feels well, no weight changes, fevers or chills. HEENT: No sinus congestion, earache, sore throat. Cardiac: No chest pain, palpitations Resp: No cough, wheeze, shortness of breath GI: No reflux symptoms, food intolerance, bowel changes. : No urinary frequency, dysuria. MS: No pain or joint complaints. PHYSICAL EXAMINATION BP 136/89 Pulse 71 Ht 182.9 cm (6') Wt 101 kg (222 lb 10.6 oz) SpO2 94% BMI 30.20 kg/m Repeat BP: 132/80 General: Alert, well developed, well nourished, no distress, pleasant and cooperative. Obese. HEENT: No adenopathy or thyromegaly Heart: Regular rate and rhythm. Normal S1 and S2. No murmurs, rubs, or gallops. Lungs: Clear to auscultation bilaterally. No respiratory distress. No wheezes, rales, or rhonchi. Abdomen: Soft, non-tender, no distention Extremities: Feet/ankles without edema, posterior tibial pulses full and symmetrical Skin: No rashes or suspicious skin lesions noted. Musculoskeletal: Health Maintenance: Depression Screening Never done Anxiety Screening Never done RSV Vaccine(1 - 1-dose 60+ series) Never done Colorectal Cancer Screening due on 11/09/2022 Covid-19 Vaccine( - 2022- season) due on 05/15/2023 Advance Directive Discussion Never done Annual PCP Team Chronic Disease Visit due on 04/20/2024 Influenza Vaccine(1) due on 05/15/2024 BP Controlled (<130/80) due on 04/25/2025 Diabetes Screening due on 04/19/2027 Lipid Screening due on 04/19/2029 Prostate Cancer Screening Discussion due on 04/19/2029 DTaP,Tdap,Td Vaccine(3 - Td or Tdap) due on 01/21/2032 Hepatitis C Screening Completed Shingrix Vaccine Completed Pneumococcal Vaccine: 65+ Completed Data Reviewed Latest Ref Rng 04/19/2024 Glucose 74 - 99 mg/dL 91 BUN 9 - 24 mg/dL 13 Creatinine 0.73 - 1.22 mg/dL 1.05 Sodium 136 - 144 mmol/L 140 Potassium 3.7 - 5.1 mmol/L 4.3 Chloride 98 - 107 mmol/L 103 CO2 22 - 30 mmol/L 27 Anion Gap 8 - 15 mmol/L 10 Calcium 8.5 - 10.2 mg/dL 9.2 eGFR >=60 mL/min/1.73m 78 Cholesterol, Total <200 mg/dL 179 Triglyceride <150 mg/dL 171 (H) HDL Cholesterol >39 mg/dL 44 Non HDL Cholesterol <130 mg/dL 135 (H) Fasting Time hrs 14 VLDL Cholesterol <30 mg/dL 34 (H) TC:HDL Ratio <5.10 4.07 LDL Cholesterol <100 mg/dL 101 (H) LDL:HDL Ratio <2.54 2.30 PSA <2.60 ng/mL 4.63 (H) TSH 0.270 - 4.200 mIU/L 2.700 Legend: (H) High Assessment/Plan (Z00.00) Well adult exam (primary encounter diagnosis) Comment: 68 year old generally healthy male here for annual exam Plan: As below (Z13.31) Screening for depression (Z13.39) Encounter for screening examination for other mental health and behavioral disorders Comment: Per health maintenance Plan: ANXIETY SCREENING DEPRESSION SCREENING (E03.9) Acquired hypothyroidism Comment: Well managed on current regimen. In need of refill Plan: levothyroxine (SYNTHROID) 112 mcg tablet Continue current regimen (E78.2) Mixed hyperlipidemia Comment: Mild. Well managed on statin therapy. In need of refill Plan: simvastatin (ZOCOR) 40 mg tablet Continue current regimen (R97.20) Elevated PSA Comment: PSA 4.63 per recent lab. No urinary symptoms Plan: Continue to follow with urologist (Z23) Encounter for immunization Comment: Pt requests rsv vaccine, will be completed today in office Plan: RSV VACCINE, BIVALENT (ABRYSVO) (Z12.12) Screening for malignant neoplasm of the rectum (D12.6) Benign neoplasm of colon, unspecified part of colon Comment: Due for screening per health maintenance, pt agreeable Plan: COLONOSCOPY SCREENING Requested Prescriptions Signed Prescriptions Disp Refills levothyroxine (SYNTHROID) 112 mcg tablet 90 tablet 3 Sig: Take 1 tablet by mouth once daily. Take on empty stomach. For thyroid. lisinopril (ZESTRIL) 5 mg tablet 135 tablet 3 Sig: Take 1.5 tablets by mouth once daily. simvastatin (ZOCOR) 40 mg tablet 90 tablet 3 Sig: Take 1 tablet by mouth daily at bedtime. For cholesterol RTO: 1 year or sooner as needed Scribe Attestation: By signing my name below, Jose Ventura, attest that this documentation has been prepared under the direction and in the presence of David Floyd M.D. Electronically Signed: Zak Banerjee. May 12, 2024 3:46 PM Provider Attestation: Arlen Ventura MD, personally performed the services described in this documentation. All medical record entries made by the scribe were at my direction and in my telephonic presence. I have reviewed the chart and discharge instructions (if applicable), and agree that the record reflects my personal performance and is accurate and complete. Electronically Signed: Arlen Floyd MD May 13, 2024 4:59 PM documented in this encounter [facility] 08-29-2024 Instructions Arlen Floyd MD - 05/12/2024 4:03 PM EDT Images from the original note were not included. Bowel Preparation Instructions for: Miralax-Gatorade Preparations IF YOU DO NOT FOLLOW THESE DIRECTIONS, YOUR COLONOSCOPY WILL BE CANCELLED. Gann Instructions: Your bowel must be empty so that your doctor can clearly view your colon. Follow all of the instructions in this handout EXACTLY as they are written. Do NOT eat any solid food the ENTIRE day before your colonoscopy. Buy your bowel preparation at least 5 days before your colonoscopy. Four (4) Dulcolax laxative tablets containing 5mg of bisacodyl each (NOT Dulcolax stool softener) One (1) 8.3oz. bottle Miralax (238 grams) or generic equivalent 2 x 32oz. Bottles of Gatorade (NOT RED) Diabetic Patients: Use G2 (Gatorade 2) TRANSPORTATION on the Day of Your Exam A responsible adult MUST be present with you at Check In prior to your colonoscopy and REMAIN in the endoscopy area until you are discharged. You are NOT ALLOWED to drive, take a taxi or bus, or leave the Endoscopy Center ALONE. If you do not have a responsible regional company flatbed truck driver (family member or friend) with you to take you home, your exam cannot be done with sedation and will be cancelled. Please bring a list of all of your current medications, including any Teia-far-Burfsuo medications with you. Medications If you take insulin, diabetic medications or blood thinners such as Coumadin (warfarin), Plavix (clopidogrel), Ticlid (ticlopidine hydrochloride), Agrylin (anagrelide), Xarelto (Rivaroxaban), Pradaxa (Dabigatran), Eliquis (Apixaban), and Effient (Prasugrel). You MUST call the doctors who orders those medicines for instructions on altering the dosage before your colonoscopy. All other medications should be taken the day of the exam with a sip of water including ASPIRIN. Five (5) Days Before Your Colonoscopy Do NOT take medicines that stop diarrhea - such as Imodium, Kaopectate, or Pepto Bismol. Do NOT take fiber supplements - such as Metamucil, Citrucel, or Perdiem. Do NOT take products that contain iron - such as multi-vitamins (the label lists what is in the products). Three (3) Days Before Your Colonoscopy Do NOT eat high-fiber foods - such as popcorn, beans, seeds (flax, sunflower, quinoa), multigrain bread, nuts, salad/vegetables, or fresh and dried fruit. 1 Bowel Preparation Instructions for: Miralax-Gatorade Preparations One (1) Day Before Your Colonoscopy Only drink clear liquids the ENTIRE DAY before your colonoscopy. Do NOT eat any solid foods. Drink at least 8 ounces of clear liquids every hour after waking up. The clear liquids you can drink include: Clear Liquid (NO RED LIQUIDS) DO NOT DRINK Gatorade, Pedialyte or Powerade Clear broth or bouillon Coffee or tea (no milk or non-dairy creamer) Carbonated and non-carbonated soft drinks Giuliano-Aid or other fruit flavored drinks Strained fruit juices (no pulp) Jell-O, popsicles, hard candy Water Alcohol Milk or non-dairy creamers Noodles or vegetables in soup Juice with pulp Liquid you cannot see through Do not use tobacco/vaping products Mix 1/2 of Miralax bottle (119 grams) in each 32 ounces of Gatorade bottle until dissolved. Keep cool in the refrigerator. DO NOT ADD ICE. The bowel preparation solution will be consumed in two parts. Part 1 5:00 PM - Evening before your colonoscopy Take 4 Dulcolax tablets. 6 PM - Evening before your colonoscopy Drink 32 oz. of the mixed solution. Drink an 8 oz. glass of bowel preparation every 15 minutes for a total of 4 glasses. Fifteen (15) minutes later, drink an 8 oz. glass of of clear liquids every 15 minutes for a total of 2 glasses. You may continue to drink clear liquids till midnight. Part 2 On the day of your colonoscopy you may drink clear liquids up to (three) 3 hours prior to procedure. 4 1/2 hours before your colonoscopy Take another 32 oz. bottle of mixed solution. Drink an 8 oz. glass of bowel prep every 15 minutes for a total of 4 glasses. Fifteen (15) minutes later, drink an 8 oz. glass of clear liquids every 15 minutes for a total of 2 glasses. You may continue to drink clear liquids up to (three) 3 hours before your exam. 2 08/2019 Bowel Preparation Instructions for: Miralax-Gatorade Preparations IF YOU DO NOT FOLLOW THESE DIRECTIONS, YOUR COLONOSCOPY WILL BE CANCELLED. Gann Instructions: Your bowel must be empty so that your doctor can clearly view your colon. Follow all of the instructions in this handout EXACTLY as they are written. Do NOT eat any solid food the ENTIRE day before your colonoscopy. Buy your bowel preparation at least 5 days before your colonoscopy. Four (4) Dulcolax laxative tablets containing 5mg of bisacodyl each (NOT Dulcolax stool softener) One (1) 8.3oz. bottle Miralax (238 grams) or generic equivalent 2 x 32oz. Bottles of Gatorade (NOT RED) Diabetic Patients: Use G2 (Gatorade 2) TRANSPORTATION on the Day of Your Exam A responsible adult MUST be present with you at Check In prior to your colonoscopy and REMAIN in the endoscopy area until you are discharged. You are NOT ALLOWED to drive, take a taxi or bus, or leave the Endoscopy Center ALONE. If you do not have a responsible regional company flatbed truck driver (family member or friend) with you to take you home, your exam cannot be done with sedation and will be cancelled. Please bring a list of all of your current medications, including any Bbuv-yna-Cmiuigv medications with you. Medications If you take insulin, diabetic medications or blood thinners such as Coumadin (warfarin), Plavix (clopidogrel), Ticlid (ticlopidine hydrochloride), Agrylin (anagrelide), Xarelto (Rivaroxaban), Pradaxa (Dabigatran), Eliquis (Apixaban), and Effient (Prasugrel). You MUST call the doctors who orders those medicines for instructions on altering the dosage before your colonoscopy. All other medications should be taken the day of the exam with a sip of water including ASPIRIN. Five (5) Days Before Your Colonoscopy Do NOT take medicines that stop diarrhea - such as Imodium, Kaopectate, or Pepto Bismol. Do NOT take fiber supplements - such as Metamucil, Citrucel, or Perdiem. Do NOT take products that contain iron - such as multi-vitamins (the label lists what is in the products). Three (3) Days Before Your Colonoscopy Do NOT eat high-fiber foods - such as popcorn, beans, seeds (flax, sunflower, quinoa), multigrain bread, nuts, salad/vegetables, or fresh and dried fruit. 1 Bowel Preparation Instructions for: Miralax-Gatorade Preparations One (1) Day Before Your Colonoscopy Only drink clear liquids the ENTIRE DAY before your colonoscopy. Do NOT eat any solid foods. Drink at least 8 ounces of clear liquids every hour after waking up. The clear liquids you can drink include: Clear Liquid (NO RED LIQUIDS) DO NOT DRINK Gatorade, Pedialyte or Powerade Clear broth or bouillon Coffee or tea (no milk or non-dairy creamer) Carbonated and non-carbonated soft drinks Giuliano-Aid or other fruit flavored drinks Strained fruit juices (no pulp) Jell-O, popsicles, hard candy Water Alcohol Milk or non-dairy creamers Noodles or vegetables in soup Juice with pulp Liquid you cannot see through Do not use tobacco/vaping products Mix 1/2 of Miralax bottle (119 grams) in each 32 ounces of Gatorade bottle until dissolved. Keep cool in the refrigerator. DO NOT ADD ICE. The bowel preparation solution will be consumed in two parts. Part 1 5:00 PM - Evening before your colonoscopy Take 4 Dulcolax tablets. 6 PM - Evening before your colonoscopy Drink 32 oz. of the mixed solution. Drink an 8 oz. glass of bowel preparation every 15 minutes for a total of 4 glasses. Fifteen (15) minutes later, drink an 8 oz. glass of of clear liquids every 15 minutes for a total of 2 glasses. You may continue to drink clear liquids till midnight. Part 2 On the day of your colonoscopy you may drink clear liquids up to (three) 3 hours prior to procedure. 4 1/2 hours before your colonoscopy Take another 32 oz. bottle of mixed solution. Drink an 8 oz. glass of bowel prep every 15 minutes for a total of 4 glasses. Fifteen (15) minutes later, drink an 8 oz. glass of clear liquids every 15 minutes for a total of 2 glasses. You may continue to drink clear liquids up to (three) 3 hours before your exam. 2 08/2019 Bowel Preparation Instructions for: Miralax-Gatorade Preparations IF YOU DO NOT FOLLOW THESE DIRECTIONS, YOUR COLONOSCOPY WILL BE CANCELLED. Gann Instructions: Your bowel must be empty so that your doctor can clearly view your colon. Follow all of the instructions in this handout EXACTLY as they are written. Do NOT eat any solid food the ENTIRE day before your colonoscopy. Buy your bowel preparation at least 5 days before your colonoscopy. Four (4) Dulcolax laxative tablets containing 5mg of bisacodyl each (NOT Dulcolax stool softener) One (1) 8.3oz. bottle Miralax (238 grams) or generic equivalent 2 x 32oz. Bottles of Gatorade (NOT RED) Diabetic Patients: Use G2 (Gatorade 2) TRANSPORTATION on the Day of Your Exam A responsible adult MUST be present with you at Check In prior to your colonoscopy and REMAIN in the endoscopy area until you are discharged. You are NOT ALLOWED to drive, take a taxi or bus, or leave the Endoscopy Center ALONE. If you do not have a responsible regional company flatbed truck driver (family member or friend) with you to take you home, your exam cannot be done with sedation and will be cancelled. Please bring a list of all of your current medications, including any Jivk-efk-Dkjjvqp medications with you. Medications If you take insulin, diabetic medications or blood thinners such as Coumadin (warfarin), Plavix (clopidogrel), Ticlid (ticlopidine hydrochloride), Agrylin (anagrelide), Xarelto (Rivaroxaban), Pradaxa (Dabigatran), Eliquis (Apixaban), and Effient (Prasugrel). You MUST call the doctors who orders those medicines for instructions on altering the dosage before your colonoscopy. All other medications should be taken the day of the exam with a sip of water including ASPIRIN. Five (5) Days Before Your Colonoscopy Do NOT take medicines that stop diarrhea - such as Imodium, Kaopectate, or Pepto Bismol. Do NOT take fiber supplements - such as Metamucil, Citrucel, or Perdiem. Do NOT take products that contain iron - such as multi-vitamins (the label lists what is in the products). Three (3) Days Before Your Colonoscopy Do NOT eat high-fiber foods - such as popcorn, beans, seeds (flax, sunflower, quinoa), multigrain bread, nuts, salad/vegetables, or fresh and dried fruit. 1 Bowel Preparation Instructions for: Miralax-Gatorade Preparations One (1) Day Before Your Colonoscopy Only drink clear liquids the ENTIRE DAY before your colonoscopy. Do NOT eat any solid foods. Drink at least 8 ounces of clear liquids every hour after waking up. The clear liquids you can drink include: Clear Liquid (NO RED LIQUIDS) DO NOT DRINK Gatorade, Pedialyte or Powerade Clear broth or bouillon Coffee or tea (no milk or non-dairy creamer) Carbonated and non-carbonated soft drinks Giuliano-Aid or other fruit flavored drinks Strained fruit juices (no pulp) Jell-O, popsicles, hard candy Water Alcohol Milk or non-dairy creamers Noodles or vegetables in soup Juice with pulp Liquid you cannot see through Do not use tobacco/vaping products Mix 1/2 of Miralax bottle (119 grams) in each 32 ounces of Gatorade bottle until dissolved. Keep cool in the refrigerator. DO NOT ADD ICE. The bowel preparation solution will be consumed in two parts. Part 1 5:00 PM - Evening before your colonoscopy Take 4 Dulcolax tablets. 6 PM - Evening before your colonoscopy Drink 32 oz. of the mixed solution. Drink an 8 oz. glass of bowel preparation every 15 minutes for a total of 4 glasses. Fifteen (15) minutes later, drink an 8 oz. glass of of clear liquids every 15 minutes for a total of 2 glasses. You may continue to drink clear liquids till midnight. Part 2 On the day of your colonoscopy you may drink clear liquids up to (three) 3 hours prior to procedure. 4 1/2 hours before your colonoscopy Take another 32 oz. bottle of mixed solution. Drink an 8 oz. glass of bowel prep every 15 minutes for a total of 4 glasses. Fifteen (15) minutes later, drink an 8 oz. glass of clear liquids every 15 minutes for a total of 2 glasses. You may continue to drink clear liquids up to (three) 3 hours before your exam. 2 08/2019 Bowel Preparation Instructions for: Miralax-Gatorade Preparations IF YOU DO NOT FOLLOW THESE DIRECTIONS, YOUR COLONOSCOPY WILL BE CANCELLED. Gann Instructions: Your bowel must be empty so that your doctor can clearly view your colon. Follow all of the instructions in this handout EXACTLY as they are written. Do NOT eat any solid food the ENTIRE day before your colonoscopy. Buy your bowel preparation at least 5 days before your colonoscopy. Four (4) Dulcolax laxative tablets containing 5mg of bisacodyl each (NOT Dulcolax stool softener) One (1) 8.3oz. bottle Miralax (238 grams) or generic equivalent 2 x 32oz. Bottles of Gatorade (NOT RED) Diabetic Patients: Use G2 (Gatorade 2) TRANSPORTATION on the Day of Your Exam A responsible adult MUST be present with you at Check In prior to your colonoscopy and REMAIN in the endoscopy area until you are discharged. You are NOT ALLOWED to drive, take a taxi or bus, or leave the Endoscopy Center ALONE. If you do not have a responsible regional company flatbed truck driver (family member or friend) with you to take you home, your exam cannot be done with sedation and will be cancelled. Please bring a list of all of your current medications, including any Ywrq-vjz-Wfozvhb medications with you. Medications If you take insulin, diabetic medications or blood thinners such as Coumadin (warfarin), Plavix (clopidogrel), Ticlid (ticlopidine hydrochloride), Agrylin (anagrelide), Xarelto (Rivaroxaban), Pradaxa (Dabigatran), Eliquis (Apixaban), and Effient (Prasugrel). You MUST call the doctors who orders those medicines for instructions on altering the dosage before your colonoscopy. All other medications should be taken the day of the exam with a sip of water including ASPIRIN. Five (5) Days Before Your Colonoscopy Do NOT take medicines that stop diarrhea - such as Imodium, Kaopectate, or Pepto Bismol. Do NOT take fiber supplements - such as Metamucil, Citrucel, or Perdiem. Do NOT take products that contain iron - such as multi-vitamins (the label lists what is in the products). Three (3) Days Before Your Colonoscopy Do NOT eat high-fiber foods - such as popcorn, beans, seeds (flax, sunflower, quinoa), multigrain bread, nuts, salad/vegetables, or fresh and dried fruit. 1 Bowel Preparation Instructions for: Miralax-Gatorade Preparations One (1) Day Before Your Colonoscopy Only drink clear liquids the ENTIRE DAY before your colonoscopy. Do NOT eat any solid foods. Drink at least 8 ounces of clear liquids every hour after waking up. The clear liquids you can drink include: Clear Liquid (NO RED LIQUIDS) DO NOT DRINK Gatorade, Pedialyte or Powerade Clear broth or bouillon Coffee or tea (no milk or non-dairy creamer) Carbonated and non-carbonated soft drinks Giuliano-Aid or other fruit flavored drinks Strained fruit juices (no pulp) Jell-O, popsicles, hard candy Water Alcohol Milk or non-dairy creamers Noodles or vegetables in soup Juice with pulp Liquid you cannot see through Do not use tobacco/vaping products Mix 1/2 of Miralax bottle (119 grams) in each 32 ounces of Gatorade bottle until dissolved. Keep cool in the refrigerator. DO NOT ADD ICE. The bowel preparation solution will be consumed in two parts. Part 1 5:00 PM - Evening before your colonoscopy Take 4 Dulcolax tablets. 6 PM - Evening before your colonoscopy Drink 32 oz. of the mixed solution. Drink an 8 oz. glass of bowel preparation every 15 minutes for a total of 4 glasses. Fifteen (15) minutes later, drink an 8 oz. glass of of clear liquids every 15 minutes for a total of 2 glasses. You may continue to drink clear liquids till midnight. Part 2 On the day of your colonoscopy you may drink clear liquids up to (three) 3 hours prior to procedure. 4 1/2 hours before your colonoscopy Take another 32 oz. bottle of mixed solution. Drink an 8 oz. glass of bowel prep every 15 minutes for a total of 4 glasses. Fifteen (15) minutes later, drink an 8 oz. glass of clear liquids every 15 minutes for a total of 2 glasses. You may continue to drink clear liquids up to (three) 3 hours before your exam. 2 08/2019 documented in this encounter [facility] 05-06-2024 Telephone encounter Note Ok refill. Keep appt. The following approved medication requests have been transmitted electronically. Requested Prescriptions Signed Prescriptions Disp Refills simvastatin (ZOCOR) 40 mg tablet 90 tablet 0 Sig: Take 1 tablet by mouth daily at bedtime. For cholesterol Authorizing Provider: ARLEN FLOYD MD [facility] 05-06-2024 Miscellaneous Notes Ok refill. Keep appt. The following approved medication requests have been transmitted electronically. Requested Prescriptions Signed Prescriptions Disp Refills simvastatin (ZOCOR) 40 mg tablet 90 tablet 0 Sig: Take 1 tablet by mouth daily at bedtime. For cholesterol Authorizing Provider: ARLEN FLOYD MD Prescription Refill Information The patient has been identified by name and date of : Yes Caregiver verified no other encounters exist for this prescription request: Yes Caregiver confirmed with patient/requestor that no other refills are due, in the near future, with this provider at this time: Yes The last office visit in the department: 04/20/23 Does the patient have a future office visit with this provider/department: Yes Requested Prescriptions Pending Prescriptions Disp Refills simvastatin (ZOCOR) 40 mg tablet [Pharmacy Med Name: SIMVASTATIN 40 MG TABLET] 90 tablet 3 Sig: TAKE 1 TABLET BY MOUTH DAILY AT BEDTIME. FOR CHOLESTEROLS. Geoff Hopper MA May 06, 2024 8:35 AM documented in this encounter [facility] 05-06-2024 Telephone encounter Note Prescription Refill Information The patient has been identified by name and date of : Yes Caregiver verified no other encounters exist for this prescription request: Yes Caregiver confirmed with patient/requestor that no other refills are due, in the near future, with this provider at this time: Yes The last office visit in the department: 04/20/23 Does the patient have a future office visit with this provider/department: Yes Requested Prescriptions Pending Prescriptions Disp Refills simvastatin (ZOCOR) 40 mg tablet [Pharmacy Med Name: SIMVASTATIN 40 MG TABLET] 90 tablet 3 Sig: TAKE 1 TABLET BY MOUTH DAILY AT BEDTIME. FOR CHOLESTEROLS. Geoff Hopper MA May 06, 2024 8:35 AM [facility] 04-26-2024 Telephone encounter Note Patient given results and verbalized understanding of instructions given. Sweta Morgan LPN [facility] 04-26-2024 Miscellaneous Notes Patient given results and verbalized understanding of instructions given. Sweta Morgan LPN Please inform patient that he did test positive for COVID-19. Continue supportive therapies as discussed during visit. Follow-up with PCP if symptoms are not progressively improving. David Cazares APRN.KORY documented in this encounter [facility] 04-26-2024 Telephone encounter Note Please inform patient that he did test positive for COVID-19. Continue supportive therapies as discussed during visit. Follow-up with PCP if symptoms are not progressively improving. David Cazares APRN.PROCUREMENT SERVICES MANAGER [facility] Work Phone: 04-25-2024 History of Present illness Narrative This note was created using MyFabriter. Subjective Ilda Larsen is a 68 year old male. HPI 68-year-old male presents for cough, nasal congestion, fever, chills x 4 days. Patient states on started getting sick. States he has had productive cough, nasal congestion, fever and chills. No chest pain or shortness of breath. He denies any vomiting or diarrhea. Still able to eat and drink. He did a home COVID test that came back positive. He needs a confirmatory test for jury duty. Patient is not interested in the antiviral. No other complaint. PAST MEDICAL HISTORY No date: Acquired hypothyroidism No date: Benign neoplasm of colon No date: Coronary artery disease No date: Deltoid bursitis No date: Essential hypertension No date: HTN (hypertension) No date: Hypercholesteremia 2011: Hypothyroidism No date: Mixed hyperlipidemia No date: Shingles Comment: Painful PAST SURGICAL HISTORY 1998: COLONOSCOPY FLX DX W/COLLJ SPEC WHEN PFRMD Comment: Colonoscopy 11/09/2019: COLONOSCOPY FLX DX W/COLLJ SPEC WHEN PFRMD Comment: Colonoscopy 04/23/10: COLSC FLX W/RMVL OF TUMOR POLYP LESION SNARE TQ 07/23/2010: SIGMOIDOSCOPY FLX DX W/COLLJ SPEC BR/WA IF PFRMD Comment: Sigmoidoscopy, flexible No date: VASECTOMY UNI/BI SPX W/POSTOP SEMEN EXAMS ALLERGIES Patient has no known allergies. MEDICATIONS levothyroxine (SYNTHROID) 112 mcg tablet TAKE 1 TABLET BY MOUTH ONCE DAILY. TAKE ON EMPTY STOMACH. FOR THYROID. lisinopril (ZESTRIL) 5 mg tablet take 1 and 1/2 tablets by mouth once daily simvastatin (ZOCOR) 40 mg tablet Take 1 tablet by mouth daily at bedtime. For cholesterols. FAMILY HISTORY Problem Relation Age of Onset Lipids Brother Prostate Cancer Brother Social History Tobacco Use Smoking status: Never Smokeless tobacco: Never Vaping Use Vaping Use: Never used Substance Use Topics Alcohol use: No Drug use: No Review of Systems Constitutional: Positive for chills and fever. HENT: Positive for congestion. Negative for sore throat. Respiratory: Positive for cough. Negative for shortness of breath. Gastrointestinal: Negative for diarrhea and vomiting. Objective BP 120/80 Pulse 90 Temp 36.5 C (97.7 F) Resp 20 Wt 100.3 kg (221 lb 1.9 oz) SpO2 98% BMI 29.99 kg/m Physical Exam Vitals and nursing note reviewed. Constitutional: General: He is not in acute distress. Appearance: Normal appearance. He is not toxic-appearing. HENT: Right Ear: Tympanic membrane and ear canal normal. Left Ear: Tympanic membrane and ear canal normal. Nose: Nose normal. Mouth/Throat: Mouth: Mucous membranes are moist. Pharynx: Oropharynx is clear. Eyes: Conjunctiva/sclera: Conjunctivae normal. Cardiovascular: Rate and Rhythm: Normal rate and regular rhythm. Pulmonary: Effort: Pulmonary effort is normal. Breath sounds: Normal breath sounds. No wheezing, rhonchi or rales. Skin: General: Skin is warm and dry. Neurological: Mental Status: He is alert. Assessment and Plan ASSESSMENT/PLAN: 1. Suspected COVID-19 virus infection - ICD9: V01.79, ICD10: Z20.822 (primary diagnosis) -Positive home test. Needs confirmatory test. - COVID NAAT, UPPER RESPIRATORY, ROUTINE -Patient declines antiviral. 2. URI, acute - ICD9: 465.9, ICD10: J06.9 - Discussed viral etiology and rationale for treatment. - Symptomatic treatment with prn analgesia - Supportive care with fluids and rest - COVID NAAT, UPPER RESPIRATORY, ROUTINE Diagnosis and treatment plan were discussed and questions were answered to the patient's satisfaction. Pt acknowledged understanding of concepts and follow up plan. Specific signs and symptoms that would indicate the need for higher level of care were discussed in detail warranting prompt ER evaluation. LUCINA Galindo documented in this encounter [facility] 04-25-2024 Instructions Nomi Schneider PA - 04/25/2024 9:26 AM EDT How to Manage Common Symptoms Associated with COVID for Adults Fever- Fever is a temperature over 100.4 F and can occur when the body is fighting an infection. To help treat a fever: Drink plenty of fluids and stay well hydrated. Eat small amounts of easy to digest food. Rest. Your body needs rest to recover, but getting up and moving around the house frequently is a good idea. You should try to continue doing your normal daily activities (bathing, toileting, grooming, cooking), though you will probably feel tired, and need to rest often. Avoid any heavy activity or exercise, as this will increase your body temperature. Dress in light clothing and stay covered in a light sheet. Keep the room temperature cool. Take a slightly warm (not cold or cool) bath, or apply damp washcloths to the forehead and wrists. Cough- Cough is a common symptom associated with COVID and can be bothersome. To help treat a cough: Stay well hydrated. Try warm water or tea with lemon and/or honey to help soothe the cough. Use a humidifier to add moisture to the air. Try a product with menthol, like a cough drop or a rub for your chest such as Vicks, which can help reduce cough. Try cough drops. Avoid smoking and other strong odors or perfumes. Try breathing exercises to keep your lungs open and clear. Take a big deep breath through your nose and hold for 5 seconds before slowly releasing. Repeat frequently, while you are awake. Congestion- Runny nose or nasal congestion can occur with COVID. Treatment can help relieve symptoms: Try OTC nasal saline spray, or nasal saline rinse to relieve mucus congestion. Nasal strips can help keep nasal passages open, to increase airflow. Elevating your head with an extra pillow in bed can help reduce congestion. Using a humidifier can increase moisture in the air, and make breathing easier. Sore Throat- Another common symptom with COVID, can be managed at home by: Stay well hydrated. Gargle with salt water - mix teaspoon salt with 1 cup of warm water and gargle. This helps to loosen mucus in the back of the throat and may reduce discomfort. Try ice chips, popsicles or lozenges to soothe the throat. Nausea/Vomiting/Diarrhea- These are common symptoms, and staying hydrated is most important. If you are nauseous or vomiting, start with small sips of water every 10-15 minutes and increase as tolerated. You can try sucking an ice cube too. If tolerating, you can try pedialyte or Gatorade, or flat sprite or ayah-ivone. Start slowly and increase as you are able to. Instead of meals, try smaller, more frequent snacks. Try eating bland foods like crackers, toast, rice, and applesauce. Avoid spicy, greasy or fried foods and dairy containing foods. Even if you aren't feeling hungry due to lack of smell or taste, it is important to try to take in some food when you are able. After drinking and eating, rest in an upright position for up to two hours as needed to help decrease nauseous feelings. Try closing your eyes, avoid moving and watching TV. Avoid strong odors that can make you feel more nauseated. When to seek emergency medical attention Look for emergency warning signs for COVID-19. If having any of these symptoms, seek emergency medical care immediately: Trouble breathing Persistent pain or pressure in the chest New confusion Inability to wake or stay awake Bluish lips or face *This list is not all possible symptoms. Please call your medical provider for any other symptoms that are severe or concerning to you. documented in this encounter [facility] 04-19-2024 Telephone encounter Note Patient had drawn today. [facility] 04-19-2024 Miscellaneous Notes Patient had drawn today. Due for fasting labs, orders placed Priya Fitzpatrick APRN.CNP Prescription Refill Information The patient has been identified by name and date of : Yes Caregiver verified no other encounters exist for this prescription request: Yes Caregiver confirmed with patient/requestor that no other refills are due, in the near future, with this provider at this time: Yes The last office visit in the department: 04/20/23 Does the patient have a future office visit with this provider/department: Yes Requested Prescriptions Pending Prescriptions Disp Refills levothyroxine (SYNTHROID) 112 mcg tablet [Pharmacy Med Name: LEVOTHYROXINE 112 MCG TABLET] 90 tablet 3 Sig: TAKE 1 TABLET BY MOUTH ONCE DAILY. TAKE ON EMPTY STOMACH. FOR THYROID. lisinopril (ZESTRIL) 5 mg tablet [Pharmacy Med Name: LISINOPRIL 5 MG TABLET] 135 tablet 3 Sig: take 1 and 1/2 tablets by mouth once daily Mary Potts MA April 18, 2024 3:27 PM documented in this encounter [facility] 04-18-2024 Telephone encounter Note Due for fasting labs, orders placed Priya Fitzpatrick APRN.KORY [facility] 04-18-2024 Telephone encounter Note Prescription Refill Information The patient has been identified by name and date of : Yes Caregiver verified no other encounters exist for this prescription request: Yes Caregiver confirmed with patient/requestor that no other refills are due, in the near future, with this provider at this time: Yes The last office visit in the department: 04/20/23 Does the patient have a future office visit with this provider/department: Yes Requested Prescriptions Pending Prescriptions Disp Refills levothyroxine (SYNTHROID) 112 mcg tablet [Pharmacy Med Name: LEVOTHYROXINE 112 MCG TABLET] 90 tablet 3 Sig: TAKE 1 TABLET BY MOUTH ONCE DAILY. TAKE ON EMPTY STOMACH. FOR THYROID. lisinopril (ZESTRIL) 5 mg tablet [Pharmacy Med Name: LISINOPRIL 5 MG TABLET] 135 tablet 3 Sig: take 1 and 1/2 tablets by mouth once daily Mary Potts MA April 18, 2024 3:27 PM [facility] 12-07-2023 Miscellaneous Notes Has he had any symptoms- weakness, slurred speech or any other history of stroke like symptoms. Can send referral for vascular surgery. The result you had would not usually prompt an intervention, aside from aggressive management of cholesterol and blood pressure. Add a baby aspirin daily. Arlen Floyd MD documented in this encounter [facility] 11-28-2023 History of Present illness Narrative Images from the original note were not included. This note was created using MyFabriter. Subjective Ilda Larsen is a 68 year old male. HPI Presents with sinus congestion and sore throat over the past 3 weeks. He is also had a cough for a week. He denies chest pain or shortness of breath. States the congestion in his nose is bothering him more than the cough. No fever. He did take a COVID test at the beginning of illness which was negative. No vomiting or diarrhea. He did noticed a swollen lymph node on the left side of his neck this morning. His ear on that side is bothering him as well. No nvd or abdominal pain. Review of Systems Constitutional: Negative. HENT: Positive for congestion, ear pain, sinus pressure, sinus pain and sore throat. Negative for ear discharge. Respiratory: Positive for cough. Negative for chest tightness, shortness of breath and wheezing. Cardiovascular: Negative. Gastrointestinal: Negative. Genitourinary: Negative. Musculoskeletal: Negative. Hematological: Positive for adenopathy. All other systems reviewed and are negative. PAST MEDICAL HISTORY Diagnosis Date Acquired hypothyroidism Benign neoplasm of colon Coronary artery disease Deltoid bursitis Essential hypertension HTN (hypertension) Hypercholesteremia Hypothyroidism 2010 Mixed hyperlipidemia Shingles Painful Current Outpatient Medications Medication Sig Dispense Refill simvastatin (ZOCOR) 40 mg tablet Take 1 tablet by mouth daily at bedtime. For cholesterols. 90 tablet 3 levothyroxine (SYNTHROID) 112 mcg tablet Take 1 tablet by mouth once daily. Take on empty stomach. For thyroid. 90 tablet 3 lisinopril (ZESTRIL) 5 mg tablet Take 1.5 tablets by mouth once daily. 135 tablet 3 amoxicillin-clavulanate potassium (AUGMENTIN) 875-125 mg per tablet Take 1 tablet by mouth two times a day for 7 days. 14 tablet 0 No current facility-administered medications for this visit. PAST SURGICAL HISTORY Procedure Laterality Date COLONOSCOPY FLX DX W/COLLJ SPEC WHEN PFRMD 1998 Colonoscopy COLONOSCOPY FLX DX W/COLLJ SPEC WHEN PFRMD 11/09/2019 Colonoscopy COLSC FLX W/RMVL OF TUMOR POLYP LESION SNARE TQ 04/23/10 SIGMOIDOSCOPY FLX DX W/COLLJ SPEC BR/WA IF PFRMD 07/23/2010 Sigmoidoscopy, flexible VASECTOMY UNI/BI SPX W/POSTOP SEMEN EXAMS FAMILY HISTORY Problem Relation Age of Onset Lipids Brother Prostate Cancer Brother Social History Tobacco Use Smoking status: Never Smokeless tobacco: Never Vaping Use Vaping Use: Never used Substance Use Topics Alcohol use: No Drug use: No Objective BP 122/80 Pulse 92 Temp 37.1 C (98.8 F) (Tympanic) Resp 16 Wt 102.8 kg (226 lb 10.1 oz) SpO2 95% BMI 30.74 kg/m Physical Exam Vitals reviewed. Constitutional: Appearance: Normal appearance. HENT: Head: Normocephalic and atraumatic. Right Ear: Tympanic membrane, ear canal and external ear normal. Left Ear: Tympanic membrane, ear canal and external ear normal. Nose: Congestion present. Mouth/Throat: Mouth: Mucous membranes are moist. Pharynx: Oropharynx is clear. Neck: Comments: Large left submandibular lymph node palpated. Cardiovascular: Rate and Rhythm: Normal rate and regular rhythm. Heart sounds: Normal heart sounds. Pulmonary: Effort: Pulmonary effort is normal. Breath sounds: Normal breath sounds. Musculoskeletal: Cervical back: Neck supple. Skin: General: Skin is warm and dry. Neurological: General: No focal deficit present. Mental Status: He is alert. Assessment and Plan ASSESSMENT/PLAN: 1. Acute pansinusitis, recurrence not specified - ICD9: 461.8, ICD10: J01.40 (primary diagnosis) - Will begin treatment with Augmentin 875 mg PO BID for 7 days - Supportive care with plenty of fluids, rest, and analgesia prn. - Follow up in 3-5 days if symptoms persist or worsen. 2. Lymphadenopathy, cervical - ICD9: 785.6, ICD10: R59.0 If not improving within 2 weeks or getting worse follow up with pcp. Bernie Daugherty PA-C documented in this encounter [facility] 05-19-2023 Instructions Janet Sage PA-C - 05/19/2023 8:32 AM EDT > 6 months for PSA, No Appointment Needed > 1 year Appointment with PSA prior > Future PSA orders are in Epic documented in this encounter [facility] 05-19-2023 History of Present illness Narrative Images from the original note were not included. [facility] NEW PATIENT CLINIC NOTE SERVICE DATE: 05/19/2023 SERVICE TIME: 8:24 AM NAME: Ilda Larsen CHIEF COMPLAINT: Elevated PSA HISTORY OF PRESENT ILLNESS: Ilda Larsen is a 67 year old male presenting with an Elevated PSA of 4.27, during annual physical The patient reports having no LUTS, but with brother who had CaP s/p RP and Radiation in his late 50 's Review of his PSA history shows mild increase from 2020. We discussed natural course of PSA increasing As we age. I recommend following a little closer with PSA in 6 mo and 12 mo with JOSELINE annually, if PSA >5.0 in 6 mo I will recommend IsoPSA JOSELINE today 35 g Benign Component Latest Ref Rng & Units 10/25/2009 11/28/2010 11/26/2012 12/02/2014 12/04/2015 11/20/2016 02/10/2018 03/21/2020 03/31/2023 PSA Screening <2.60 ng/mL 1.41 1.23 1.26 1.49 1.63 2.46 4.27 (H) LUTS: None Other symptoms: LABS: No results found for: "TESTOST" No results found for: "TESTFREE" PSA Screening (ng/mL) Date Value 03/31/2023 4.27 03/21/2020 2.46 02/10/2018 1.63 11/20/2016 1.49 No results found for: "HCT" PSA Screening (ng/mL) Date Value 03/31/2023 4.27 03/21/2020 2.46 02/10/2018 1.63 11/20/2016 1.49 12/04/2015 1.26 Creatinine Date Value Ref Range Status 03/31/2023 0.95 0.73 - 1.22 mg/dL Final 12/31/2021 1.03 0.73 - 1.22 mg/dL Final 09/25/2020 1.06 0.73 - 1.22 mg/dL Final 01/23/2020 1.02 0.73 - 1.22 mg/dL Final MEDICATIONS: simvastatin (ZOCOR) 40 mg tablet Take 1 tablet by mouth daily at bedtime. For cholesterols. levothyroxine (SYNTHROID) 112 mcg tablet Take 1 tablet by mouth once daily. Take on empty stomach. For thyroid. lisinopril (ZESTRIL) 5 mg tablet Take 1.5 tablets by mouth once daily. PAST MEDICAL HISTORY: PAST MEDICAL HISTORY Diagnosis Date Acquired hypothyroidism Benign neoplasm of colon Coronary artery disease Deltoid bursitis Essential hypertension HTN (hypertension) Hypercholesteremia Hypothyroidism 2010 Mixed hyperlipidemia Shingles Painful PAST SURGICAL HISTORY: PAST SURGICAL HISTORY Procedure Laterality Date COLONOSCOPY FLX DX W/COLLJ SPEC WHEN PFRMD 1998 Colonoscopy COLONOSCOPY FLX DX W/COLLJ SPEC WHEN PFRMD 11/09/2019 Colonoscopy COLSC FLX W/RMVL OF TUMOR POLYP LESION SNARE TQ 04/23/10 SIGMOIDOSCOPY FLX DX W/COLLJ SPEC BR/WA IF PFRMD 07/23/2010 Sigmoidoscopy, flexible VASECTOMY UNI/BI SPX W/POSTOP SEMEN EXAMS FAMILY HISTORY: FAMILY HISTORY Problem Relation Age of Onset Lipids Brother Prostate Cancer Brother SOCIAL HISTORY: Social Connections: Moderately Isolated (04/14/2023) Social Connection and Isolation Panel [NHANES] Frequency of Communication with Friends and Family: More than three times a week Frequency of Social Gatherings with Friends and Family: Twice a week Attends Alevism Services: Never Active Member of Clubs or Organizations: No Attends Club or Organization Meetings: Never Marital Status: REVIEW OF SYSTEMS: GENERAL: No fever, chills, weight loss, or fatigue. ENMT: Negative CARDIOVASCULAR:NO CHEST PAIN, PALPITATIONS, ANKLE EDEMA RESPIRATORY: No chronic cough, wheezing, dyspnea, hemoptysis. GENITOURINARY: SEE HPI MUSCULOSKELETAL:NO CHRONIC BACK PAIN, ARTHRITIS, CHRONIC NECK PAIN SKIN: NO VARICOSE VEINS, RASH, ABNORMAL ITCHING HEME/LYMPH/IMMUNE:Negative for prolonged bleeding, bruising easily or swollen nodes NEUROLOGICAL: NO HEADACHES, NUMBNESS, SEIZURES, STROKE DIABETES: no All other systems reviewed and are negative PHYSICAL EXAMINATION: Blood pressure 120/80, pulse 82, temperature 36.7 C (98.1 F), temperature source Temporal, resp. rate 12, height 182.9 cm (6'), weight 101.5 kg (223 lb 12.8 oz), SpO2 96 %. GENERAL: WNL nutrition, no deformities, healthy appearing NEURO: Awake, alert and oriented x 3 and Normal gait PSYCH: No signs of depression, anxiety, or agitation ENMT (Ear, Nose, Mouth, Throat): No masses, adenopathy, icterus. Thyroid nonpalpable RESP: NL effort, no retractions or purse-lip breathing. CV: No extremity swelling, varices, edema, pallor, erythema GASTROINTESTINAL: Soft, nontender, nondistended, no masses. HERNIAS: None SKIN: No rash, lesions No palpable lymphadenopathy MUSCULOSKELETAL: Extremities normal. No deformities, edema, clubbing or skin discoloration. GENITOURINARY: MALE EXAM: Rectal Exam: Prostate: size (35 grams), symmetrical, nontender, w/o nodules. PROBLEM LIST REVIEW: Yes LABS: Results for orders placed or performed in visit on 05/19/23 UA DIP, URINE (POC) Result Value Ref Range GLUCOSE UA (POCT) Negative Negative mg/dL BILIRUBIN UA (POCT) Negative Negative KETONE UA (POCT) Negative Negative mg/dL SPECIFIC GRAVITY UA (POCT) >=1.030 1.005 - 1.030 HEMOGLOBIN/BLOOD UA (POCT) Small (A) Negative PH UA (POCT) 5.5 4.5 - 8.0 PROTEIN UA (POCT) Negative Negative mg/dL UROBILINOGEN UA (POCT) 0.2 Normal E.U./dL NITRITE UA (POCT) Negative Negative LEUKOCYTES UA (POCT) Negative Negative COLOR UA (POCT) Dark yellow CLARITY UA (POCT) Clear PROCEDURES: PVR: 0 ml IMAGING: IMPRESSION/PLAN: 67 year old male with 1. Elevated PSA - ICD9: 790.93, ICD10: R97.20 > PSA 4.27 and JOSELINE 35 g Benign > No LUTS but Family Hx of CaP > UA with blood on dip, no gross, likely BPH > 6 months for PSA, No Appointment Needed 11/2023 > 1 year Appointment with PSA prior 04/2024 > Future PSA orders are in Epic > IsoPSA if > 5 in 11/2023 I spent a total of 30 minutes on the date of the service which included preparing to see the patient, face to face patient care, completing clinical documentation, obtaining and/or reviewing separately obtained history, performing a medically appropriate examination, counseling and educating the patient/family/caregiver, ordering medications, tests, or procedures, and care coordination. LARRY Foster, MT, MOE Verified name and date of . CC Post Void Residual HPI: Ilda Larsen is a 67 year old male. The patient is here now for an appointment with LARRY Foster, [place], PA-JENELLE. Procedure: Explained procedure to patient and verbalizes understanding. Performed a PVR. Patient urinated and instructed to empty bladder as much as possible just prior to having PVR done using bladder ultrasound scanner. Results of scan: 0 mL The patient tolerated the procedure well. Plan: Appointment with Janet. documented in this encounter [facility] 03-19-2023 Miscellaneous Notes Due for lab. On order OK 1 fill . Keep appt. The following approved medication requests have been transmitted electronically. Requested Prescriptions Signed Prescriptions Disp Refills lisinopril (ZESTRIL) 5 mg tablet 135 tablet 0 Sig: TAKE 1 AND 1/2 TABLETS BY MOUTH ONCE DAILY Authorizing Provider: ARLEN FLOYD MD Last appointment: 01/20/22 Next appointment: 04/20/23 Pharmacy verified in [facility]. Refill(s) requested: Requested Prescriptions Pending Prescriptions Disp Refills lisinopril (ZESTRIL) 5 mg tablet [Pharmacy Med Name: LISINOPRIL 5 MG TABLET] 135 tablet 3 Sig: TAKE 1 AND 1/2 TABLETS BY MOUTH ONCE DAILY Order(s) pended. Please advise. Priya Corral Ma, TRUCK DRIVER SALESPERSON documented in this encounter [facility] 05-01-2022 Miscellaneous Notes Spoke with pt, please see triage encounter for documentation. Please offer covid care advice and virtual visit or express care on-line visit to discuss antiviral medication if interested. Can take Mucinex DM for cough. Priya Fitzpatrick APRN.KORY documented in this encounter [facility] 03-25-2022 Miscellaneous Notes Pharmacy verified in [facility] Patient has been identified by name and date of : Yes Patient aware RX will be sent to pharmacy. No need to notify patient. Patient phones for refill(s): Pending Prescriptions Disp Refills LEVOTHYROXINE 112 MCG TABLET 90 tablet 0 Sig: Take 1 tablet by mouth once daily. Take on empty stomach. For thyroid. NURY: No LISINOPRIL 5 MG TABLET 45 tablet 0 NURY: No Date of last office visit : 01/20/2022 Date of next office visit : Visit date not found Last 2 Encounter Wt Readings: Date: Wt: 01/20/2022 101.6 kg (224 lb) 10/11/2020 102.2 kg (225 lb 3.2 oz) Thyroid: TSH Date Value 12/31/2021 1.900 mIU/L 03/21/2020 1.100 uU/mL Blood Pressure: BUN (mg/dL) Date Value 12/31/2021 18 09/25/2020 18 Creatinine (mg/dL) Date Value 12/31/2021 1.03 09/25/2020 1.06 Sodium (mmol/L) Date Value 12/31/2021 140 09/25/2020 137 Potassium (mmol/L) Date Value 12/31/2021 3.9 09/25/2020 4.3 Last 1 Encounter BP Readings: Date: BP: 01/20/2022 134/80[manual[ Please advise. Ignacia Low LPN documented in this encounter [facility] 02-28-2022 Miscellaneous Notes Last appointment: 01/17/22 Next appointment: n/a Pharmacy verified in [facility]. Refill(s) requested: Pending Prescriptions Disp Refills LEVOTHYROXINE 112 MCG TABLET 90 tablet 0 Sig: TAKE 1 TABLET BY MOUTH ONCE DAILY. TAKE ON EMPTY STOMACH. FOR THYROID. NURY: Yes Order(s) pended. Please advise. Geoff Hopper Ma, TRUCK DRIVER SALESPERSON documented in this encounter [facility] 01-20-2022 History of Present illness Narrative This note was created using [employer]atro. Subjective Ilda Larsen is a 66 year old male. Patient here for physical and follow-up on chronic issues. HTN: takes lisinopril 5mg daily. Doesn't check blood pressure's regularly at home. HLD: managed on simvastatin. Reviewed most recent labs. Hypothyroidism: controlled on levothyroxine 112 mcg Reviewed health maintenance items: patient agreeable to tetanus and Shingrix vaccines today. Review of Systems Constitutional: Negative for chills, fever and unexpected weight change. HENT: Negative for congestion, ear pain, hearing loss, rhinorrhea and sore throat. Eyes: Negative for visual disturbance. Respiratory: Negative for cough, shortness of breath and wheezing. Cardiovascular: Negative for chest pain, palpitations and leg swelling. Gastrointestinal: Negative for abdominal pain, constipation, diarrhea, nausea and vomiting. Endocrine: Negative for polydipsia and polyuria. Genitourinary: Negative for dysuria, frequency, hematuria and urgency. Musculoskeletal: Negative for arthralgias, back pain, myalgias and neck pain. Allergic/Immunologic: Negative for immunocompromised state. Neurological: Negative for dizziness, syncope, light-headedness and headaches. Hematological: Negative for adenopathy. Does not bruise/bleed easily. Psychiatric/Behavioral: Negative for dysphoric mood. The patient is not nervous/anxious. PAST MEDICAL HISTORY Diagnosis Date Benign neoplasm of colon Coronary artery disease Deltoid bursitis HTN (hypertension) Hypercholesteremia Hypothyroidism 2010 Shingles Painful PAST SURGICAL HISTORY Procedure Laterality Date COLONOSCOPY FLX DX W/COLLJ SPEC WHEN PFRMD 1998 Colonoscopy COLONOSCOPY FLX DX W/COLLJ SPEC WHEN PFRMD 11/09/2019 Colonoscopy COLSC FLX W/RMVL OF TUMOR POLYP LESION SNARE TQ 04/23/10 SIGMOIDOSCOPY FLX DX W/COLLJ SPEC BR/WA IF PFRMD 07/23/2010 Sigmoidoscopy, flexible VASECTOMY UNI/BI SPX W/POSTOP SEMEN EXAMS ALLERGIES Patient has no known allergies. MEDICATIONS levothyroxine (SYNTHROID) 112 mcg tablet TAKE 1 TABLET BY MOUTH ONCE DAILY. TAKE ON EMPTY STOMACH. FOR THYROID. lisinopril (ZESTRIL, PRINIVIL) 5 mg tablet TAKE 1 AND 1/2 TABS EVERY DAY BY MOUTH simvastatin (ZOCOR) 40 mg tablet Take 1 tablet by mouth daily at bedtime. For cholesterols. FAMILY HISTORY Problem Relation Age of Onset Lipids Brother Prostate Cancer Brother Social History Tobacco Use Smoking status: Never Smoker Smokeless tobacco: Never Used Vaping Use Vaping Use: Never used Substance Use Topics Alcohol use: No Drug use: No Objective BP 149/82 Pulse 68 Ht 182.9 cm (6' 0.01") Wt 101.6 kg (224 lb) BMI 30.37 kg/m Physical Exam Vitals and nursing note reviewed. Constitutional: Appearance: He is not ill-appearing. HENT: Head: Normocephalic. Right Ear: Tympanic membrane and ear canal normal. Left Ear: Tympanic membrane and ear canal normal. Mouth/Throat: Mouth: Mucous membranes are moist. Eyes: Extraocular Movements: Extraocular movements intact. Conjunctiva/sclera: Conjunctivae normal. Pupils: Pupils are equal, round, and reactive to light. Neck: Thyroid: No thyroid mass or thyromegaly. Cardiovascular: Rate and Rhythm: Normal rate and regular rhythm. Pulses: Normal pulses. Heart sounds: Normal heart sounds. Pulmonary: Effort: Pulmonary effort is normal. Breath sounds: Normal breath sounds and air entry. Abdominal: General: Abdomen is flat. Bowel sounds are normal. Palpations: Abdomen is soft. Musculoskeletal: General: Normal range of motion. Cervical back: Normal range of motion. Right lower leg: No edema. Left lower leg: No edema. Lymphadenopathy: Cervical: No cervical adenopathy. Skin: General: Skin is warm and dry. Capillary Refill: Capillary refill takes less than 2 seconds. Neurological: Mental Status: He is alert and oriented to person, place, and time. Cranial Nerves: No cranial nerve deficit. Deep Tendon Reflexes: Reflexes normal. Psychiatric: Mood and Affect: Mood normal. Thought Content: Thought content normal. Assessment and Plan 1. Well adult exam Continue to work toward 30 minutes of physical activity daily, Mediterranean diet. 2. Mixed hyperlipidemia Controlled on simvastatin, continue. - simvastatin (ZOCOR) 40 mg tablet; Take 1 tablet by mouth daily at bedtime. For cholesterols. Dispense: 90 tablet; Refill: 3 3. Essential hypertension Above goal today. Recommend to check blood pressure's at home regularly 1-2x/day for the next 2 weeks and report back readings. If mostly >130/80 at the time, will increase lisinopril to 10mg. 4. Encounter for immunization - ZOSTER VACC RECOMBINANT,IM - TETANUS/DIPTHERIA BOOSTER (OVER 7), ADSORBED IM documented in this encounter [facility] Evaluation note Diagnosis Well adult exam- Primary Routine general medical examination at a health care facility Mixed hyperlipidemia Essential hypertension Unspecified essential hypertension Encounter for immunization Need for other specified prophylactic vaccination against single bacterial disease [facility] Diagnosis Acquired hypothyroidism Unspecified hypothyroidism [facility] Diagnosis Encounter for immunization- Primary Need for other specified prophylactic vaccination against single bacterial disease [facility] Acquired hypothyroidism Unspecified hypothyroidism [facility] Diagnosis Elevated PSA- Primary Elevated prostate specific antigen (PSA) Benign prostatic hyperplasia without lower urinary tract symptoms [facility] Diagnosis Acute pansinusitis, recurrence not specified- Primary Lymphadenopathy, cervical Enlargement of lymph nodes [facility] Diagnosis Mixed hyperlipidemia- Primary Acquired hypothyroidism Unspecified hypothyroidism Essential hypertension Unspecified essential hypertension [facility] Diagnosis Suspected COVID-19 virus infection- Primary URI, acute Acute upper respiratory infections of unspecified site [facility] Diagnosis Mixed hyperlipidemia [facility] Diagnosis Well adult exam- Primary Routine general medical examination at a health care facility Screening for depression Encounter for screening examination for other mental health and behavioral disorders Acquired hypothyroidism Unspecified hypothyroidism Mixed hyperlipidemia Elevated PSA Elevated prostate specific antigen (PSA) Encounter for immunization Need for other specified prophylactic vaccination against single bacterial disease Screening for malignant neoplasm of the rectum Benign neoplasm of colon, unspecified part of colon Special screening for malignant neoplasms, colon [facility] Diagnosis Benign prostatic hyperplasia without lower urinary tract symptoms- Primary Elevated PSA Elevated prostate specific antigen (PSA) documented in this encounter [facility] note* Diagnosis Screening for colon cancer- Primary Special screening for malignant neoplasms, colon Benign neoplasm of colon, unspecified part of colon documented in this encounter [facility] note* Diagnosis Elevated PSA- Primary Elevated prostate specific antigen (PSA) Benign prostatic hyperplasia without lower urinary tract symptoms Screening for genitourinary condition Screening for other and unspecified genitourinary condition Family history of malignant neoplasm of prostate documented in this encounter [facility] for referral (narrative)* Outpatient Procedure (Routine) - New Request Specialty Diagnoses / Procedures Referred By Tika toribio Referred To Contact [facility] Diagnoses Benign neoplasm of colon, unspecified part of colon Procedures COLONOSCOPY SCREENING COLONOSCOPY FLX DX W/COLLJ SPEC WHEN Arlen Fox MD [address] [address] [facility] [place] [address] [place] [id number] Referral ID Status Reason Start Date Expiration Date Visits Requested Visits Authorized [id number] New Request Auto-Generat ed Referral 05/12/2024 05/12/2025 1 1 [facility] for referral (narrative)* Outpatient Procedure (Routine) - Closed Specialty Diagnoses / Procedures Referred By Tika toribio Referred To Contact [facility] Diagnoses Benign neoplasm of colon, unspecified part of colon Procedures COLONOSCOPY SCREENING COLONOSCOPY FLX DX W/COLLJ SPEC WHEN Arlen Fox MD [address] [address] [facility] [address] [place] [address] Referral ID Status Reason Start Date Expiration Date V isits Requested Visits Authorized [id number] Closed Auto-Generate d Referral 10/11/2024 01/09/2025 1 1 [facility] for visit Narrative* Outpatient Procedure (Routine) - Closed Specialty Diagnoses / Procedures Referred By Tika toribio Referred To Contact [facility] Diagnoses Benign neoplasm of colon, unspecified part of colon Procedures COLONOSCOPY SCREENING COLONOSCOPY FLX DX W/COLLJ SPEC WHEN PFRMD Arlen Floyd MD [address] [place] [address] [facility] [address] [place] [address] Referral ID Status Reason Start Date Expiration Date V isits Requested Visits Authorized [id number] Closed Auto-Generate d Referral 10/11/2024 01/09/2025 1 1 [facility] Advance Directives No Advanced Directives Records FoundDocuments on File Type Date Recorded 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 Advance Directive(s) 11/09/2019 9:40 AM Advance Directive(s) 10/21/2019 4:43 PM Summary Purpose Family History No Family History Records FoundNo Family History Records Found Additional Source Comments Source Comments (unrecognize d section and content) In the event this informatio n is protected by the Federal Confidentiality of Alcohol and Drug Abuse Patient Records regulations: The Federal rules restrict any use of the information to criminally investigate or prosecute any alcohol or drug abuse patient.[facility] the event this information is protected by the Federal Confidentiality of Alcohol and Drug Abuse Patient Records regulations: The Federal rules restrict any use of the information to criminally investigate or prosecute any alcohol or drug abuse patient.[facility] the event this information is protected by the Federal Confidentiality of Alcohol and Drug Abuse Patient Records regulations: The Federal rules restrict any use of the information to criminally investigate or prosecute any alcohol or drug abuse patient.[facility] the event this information is protected by the Federal Confidentiality of Alcohol and Drug Abuse Patient Records regulations: The Federal rules restrict any use of the information to criminally investigate or prosecute any alcohol or drug abuse patient.[facility] the event this information is protected by the Federal Confidentiality of Alcohol and Drug Abuse Patient Records regulations: The Federal rules restrict any use of the information to criminally investigate or prosecute any alcohol or drug abuse patient.[facility] the event this information is protected by the Federal Confidentiality of Alcohol and Drug Abuse Patient Records regulations: The Federal rules restrict any use of the information to criminally investigate or prosecute any alcohol or drug abuse patient.[facility] the event this information is protected by the Federal Confidentiality of Alcohol and Drug Abuse Patient Records regulations: The Federal rules restrict any use of the information to criminally investigate or prosecute any alcohol or drug abuse patient.[facility] the event this information is protected by the Federal Confidentiality of Alcohol and Drug Abuse Patient Records regulations: The Federal rules restrict any use of the information to criminally investigate or prosecute any alcohol or drug abuse patient.[facility] the event this information is protected by the Federal Confidentiality of Alcohol and Drug Abuse Patient Records regulations: The Federal rules restrict any use of the information to criminally investigate or prosecute any alcohol or drug abuse patient.[facility] the event this information is protected by the Federal Confidentiality of Alcohol and Drug Abuse Patient Records regulations: The Federal rules restrict any use of the information to criminally investigate or prosecute any alcohol or drug abuse patient.[facility] the event this information is protected by the Federal Confidentiality of Alcohol and Drug Abuse Patient Records regulations: The Federal rules restrict any use of the information to criminally investigate or prosecute any alcohol or drug abuse patient.[facility] the event this information is protected by the Federal Confidentiality of Alcohol and Drug Abuse Patient Records regulations: The Federal rules restrict any use of the information to criminally investigate or prosecute any alcohol or drug abuse patient.[facility] HospitalIn the event this information is protected by the Federal Confidentiality of Alcohol and Drug Abuse Patient Records regulations: The Federal rules restrict any use of the information to criminally investigate or prosecute any alcohol or drug abuse patient.[facility] HospitalIn the event this information is protected by the Federal Confidentiality of Alcohol and Drug Abuse Patient Records regulations: The Federal rules restrict any use of the information to criminally investigate or prosecute any alcohol or drug abuse patient.[facility] HospitalIn the event this information is protected by the Federal Confidentiality of Alcohol and Drug Abuse Patient Records regulations: The Federal rules restrict any use of the information to criminally investigate or prosecute any alcohol or drug abuse patient.[facility] HospitalIn the event this information is protected by the Federal Confidentiality of Alcohol and Drug Abuse Patient Records regulations: The Federal rules restrict any use of the information to criminally investigate or prosecute any alcohol or drug abuse patient.[facility] HospitalIn the event this information is protected by the Federal Confidentiality of Alcohol and Drug Abuse Patient Records regulations: The Federal rules restrict any use of the information to criminally investigate or prosecute any alcohol or drug abuse patient.[facility] HospitalIn the event this information is protected by the Federal Confidentiality of Alcohol and Drug Abuse Patient Records regulations: The Federal rules restrict any use of the information to criminally investigate or prosecute any alcohol or drug abuse patient.[facility] Reason for Visit (unrecogniz ed section and content) Reason Comments Yearly Exam Reason Comments Refill Request Reason Comments Allied Health Visit shingrix vaccine Reason Comments Medication Request Reason Comments Elevated PSA New Patient Benign Prostatic Hypertrophy Specialty Diagnoses / Procedures Referred By Contdb t Referred To Contact Urology Diagnoses Elevated PSA Procedures CONSULT TO UROLOGY OFFICE/OUTPATIENT NEW HIGH MDM 60-74 MINUTES Arlen Floyd MD [address] [place] [address] Referral ID Status Reason Start Date Expiration Date Visits Requested Visits Authorized [id number] Pending Review PCP Requested Referral 04/20/2023 04/19/2024 1 1 Reason Comments Cough Cough, congestion an d bilateral ear pain x 3 weeks Reason Comments Cough Fever, chest congest ion, sore throat, WHITE, tested positive for covid x 2 Reason Comments Results Reason Comments Yearly Exam Reason Comments Follow Up Elevated PSA Reason Comments Follow Up Care Teams (unrecognized sec tion and content) Plow And Boring Machine Tender Relationship Specialty Start Date End Date Arlen Floyd MD [address] [place], [place] [id number] PCP - General Family Practice 11/30/12 Plow And Boring Machine Tender Relationship Specialty Start Date End Date Arlen Floyd MD [address] [place], [place] [id number] PCP - General Family Practice 11/30/12 Plow And Boring Machine Tender Relationship Specialty Start Date End Date Arlen Floyd MD [address] [place], [place] [id number] PCP - General Family Practice 11/30/12 Plow And Boring Machine Tender Relationship Specialty Start Date End Date Arlen Floyd MD [address] [place], [place] [id number] PCP - General Family Practice 11/30/12 Plow And Boring Machine Tender Relationship Specialty Start Date End Date Arlen Floyd MD [address] [facility] [place] [address] PCP - General Family Practice 11/30/12 Plow And Boring Machine Tender Relationship Specialty Start Date End Date Arlen Floyd MD [address] [facility] [place] [address] PCP - General Family Medicine 11/30/12 Plow And Boring Machine Tender Relationship Specialty Start Date End Date Arlen Floyd MD [address] [facility] [place] [address] PCP - General Family Medicine 11/30/12 Plow And Boring Machine Tender Relationship Specialty Start Date End Date Arlen Floyd MD [address] [facility] [place] [address] PCP - General Family Medicine 11/30/12 Plow And Boring Machine Tender Relationship Specialty Start Date End Date Arlen Floyd MD [address] [facility] [place] [address] PCP - General Family Medicine 11/30/12 Plow And Boring Machine Tender Relationship Specialty Start Date End Date Arlen Floyd MD [address] [facility] [place] [address] PCP - General Family Medicine 11/30/12 Plow And Boring Machine Tender Relationship Specialty Start Date End Date Arlen Floyd MD [address] [facility] [place] [address] PCP - General Family Medicine 11/30/12 Plow And Boring Machine Tender Relationship Specialty Start Date End Date Arlen Floyd MD [address] [facility] [place] [address] PCP - General Family Medicine 11/30/12 Plow And Boring Machine Tender Relationship Specialty Start Date End Date Arlen Floyd MD [address] [place], [place] [address] PCP - General Family Medicine 11/30/12 Plow And Boring Machine Tender Relationship Specialty Start Date End Date Arlen Floyd MD [address] [place], [place] [address] PCP - General Family Medicine 11/30/12 Priya Martinez, MARKET CONSULTANT.PROCUREMENT SERVICES MANAGER [address] [place], [place] [id number] Account Executive Sales Representative Internal Medicine 08/21/24 Plow And Boring Machine Tender Relationship Specialty Start Date End Date Arlen Floyd MD [address] [place], [place] [address] PCP - General Family Medicine 11/30/12 Priya Martinez, MARKET CONSULTANT.PROCUREMENT SERVICES MANAGER [address] [place] [phone] Account Executive Sales Representative Internal Medicine 08/21/24 Plow And Boring Machine Tender Relationship Specialty Start Date End Date Arlen Floyd MD [address] [place], [place] [address] PCP - General Family Medicine 11/30/12 Priya Martinez, MARKET CONSULTANT.PROCUREMENT SERVICES MANAGER [address] [place] [phone] Account Executive Sales Representative Internal Medicine 08/21/24 (unrecognized sect ion and content) No Status Records FoundNo Status Records Found INFORMATION SOURCE (unrecogn ized section and content) DATE CREATED AUTHOR 07/01/2025 [facility] DATE CREATED AUTHOR AUTHOR'S ORGANIZ ATION 07/11/2025 [facility] FOR RECORDS PERTAINING TO PATIENTS WHO ARE OR HAVE BEEN ENROLLED IN A CHEMICAL DEPENDENCY/SUBSTANCEABUSE PROGRAM, SOME INFORMATION MAY BE OMITTED. This clinical summary was aggregated from multiple sources. Caution should be exercised in using it in the provision of clinical care. This summary normalizes information from multiple sources, and as a consequence, information in this document may materially change the coding, format and clinical context of patient data. In addition, data may be omitted in some cases. CLINICAL DECISIONS SHOULD BE BASED ON THE PRIMARY CLINICAL RECORDS. [employer] [facility]. provides no warranty or guarantee of the accuracy or completeness of information in this document.
--- NOTE | 2025-07-19 07:29 | EKG12_ITS ---
Test Reason : PREOP Blood Pressure : */* mmHG Vent. Rate : 69 BPM Atrial Rate : 69 BPM P-R Int : 144 ms QRS Dur : 72 ms QT Int : 404 ms P-R-T Axes : 17 1 14 degrees QTcB Int : 432 ms Normal sinus rhythm with sinus arrhythmia Normal ECG Confirmed by Shay Baxter ([id number]), continuity editor IRON ELDER ([id number]) on 07/19/2025 12:39:51 PM Referred By: Truman Aparicio Confirmed By: Shay Baxter
== END | disposition home or self-care (01) ==
LOC: PSN 07:20
PROVIDERS: PCP Family Medicine; Referring Provider Urology; Visit Provider Urology
DX: Z01.810 Encounter for preprocedural cardiovascular examination (principal)
CPT/HCPCS: 93005

== ENCOUNTER → 2025-07-21 | Outpatient (CLI) | payer OTHER, SELFPAY ==
--- NOTE | 2025-07-21 07:30 | PROSBIL_PTH ---
PATIENT: ILDA LARSEN LOC: [facility] U#:[id number] AGE/SX: 69/M ROOM: RE07/21/[address]: Dr. Truman Aparicio MD : [id number] BED: DIS: 07/21/2025 SPEC #: [id number] RECD: 07/21/25 14:49 STATUS: JULIETTE REHai #: [id number] DEMETIRUS: 07/21/25 07:[address]: Truman Aparicio DEPT: SURGICAL PATHOLOGY RECD BY: Bunny Yao ENTERED: 07/21/25 15:04 SP TYPE: PROST BX TAMRA DR: Dr. David Mora MD Tissues: A - PROSTATE RIGHT B - PROSTATE RIGHT C - PROSTATE RIGHT D - PROSTATE LEFT E - PROSTATE LEFT F - PROSTATE LEFT Procedures: PROSTATE BX Immunohistochemical Stains HEADER OPERATION: Prostate biopsy PRE-OP DIAGNOSIS: Benign prostatic hyperplasia with lower urinary tract symptoms, elevated PSA TISSUE SUBMITTED: A - Right base, B - Right mid, C - Right apex, D - Left base, E - Left mid, F - Left apex MICROSCOPIC DIAGNOSIS A. Prostate, right, base, biopsy: - Benign. B. Prostate, right, mid, biopsy: - Benign. C. Prostate, right, apex, biopsy: - Benign. - PIN4 IHC supports the histologic impression. D. Prostate, left, base, biopsy: - Benign. - PIN4 IHC supports the histologic impression. E. Prostate, left, mid, biopsy: - Benign. F. Prostate, left, apex, biopsy: - Benign. MICROSCOPIC DESCRIPTION Slides are reviewed. All matched controls reacted appropriately. These tests were developed and their performance characteristics determined by [facility]. They may not have been cleared or approved by the U.S. Food and Drug Administration. The FDA has determined that such clearance or approval is not necessary. The above immunohistochemical markers and/or special?stains have been reviewed by the Pathologist. GROSS DESCRIPTION Received in 6 formalin containers labeled with the patient's name and date of . Designated as: A. Right prostate base are 2 viera tissue cores, 1.1 cm and 1.4 cm in length by 0.1 cm in diameter. Entirely submitted in 1 cassette. B. Right prostate mid are 2 viera tissue cores, 1.3 cm and 1.4 cm in length by 0.1 cm in diameter. Entirely submitted in 1 cassette. C. Right prostate apex are 2 viera tissue cores, 1.1 cm and 1.5 cm in length by 0.1 cm in diameter. Entirely submitted in 1 cassette. D. Left prostate base are 2 viera tissue cores, 1.1 cm and 1.4 cm in length by 0.1 cm in diameter. Entirely submitted in 1 cassette. E. Left prostate mid are 2 viera tissue cores, each measuring 1.2 cm in length by 0.1 cm in diameter. Entirely submitted in 1 cassette. Left prostate apex are multiple viera tissue core fragments, 0.3 cm to 1.6 cm in length by 0.1 cm in diameter. Entirely submitted in 1 cassette. [place] 07/21/2025 CPT:[id number]
== END | disposition home or self-care (01) ==
LOC: LABSPEC 14:59
PROVIDERS: PCP Family Medicine; Referring Provider Urology; Visit Provider Urology
DX: N40.0 Benign prostatic hyperplasia without lower urinary tract symptoms (principal); N39.0 Urinary tract infection, site not specified; R97.20 Elevated prostate specific antigen [PSA]
CPT/HCPCS: 88305; 88342; G0416